=== PATIENT | female | born 2000 | race Caucasian/White ===

== ENCOUNTER 2020-08-13 08:23 | Inpatient (IN) | payer OTHER ==
[2020-08-13] MEDS ORDERED: Nalbuphine 10 MG/1 ML Vial IVPUSH PRN (12:41)
[2020-08-13] MEDS ORDERED: Sodium Chloride 0.9% 10 ML Syringe FLUSH PRN (12:41)
[2020-08-13] MEDS ORDERED: Calcium Gluconate 10% 1 GM/10 ML SDV IV PRN (12:41)
[2020-08-13] MEDS ORDERED: Lidocaine 1% 50 ML MDV INJECT ONE (12:41)
[2020-08-13] MEDS ORDERED: Ondansetron 4 MG/2 ML SDV IVPUSH PRN (12:41)
[2020-08-13] MEDS ORDERED: Oxytocin/Lactated Ringers 10 UNIT/1,000 ML BAG IV SCH ×2 (12:45)
[2020-08-13] MEDS ORDERED: Ampicillin 2 GM AdvVial IV ONE (13:18)
[2020-08-13] MEDS: Lactated Ringers 1,000 ML IV SCH ×2 (13:21→18:53)
[2020-08-13] MEDS ORDERED: Ampicillin 2 GM in Sodium Chloride 0.9% 100 ML IV ONE (13:30)
--- NOTE | 2020-08-13 14:50 | PCM.PREANE ---
Preanesthetic Assessment - Procedure Proposed Procedure: Labor epidural - Anesthesia/Transfusion/Family Hx Anesthesia History: No Prior Anesthesia Family History of Anesthesia Reaction: No Transfusion History: No Prior Transfusion(s) Intubation History: Unknown - Review of Systems General: No Symptoms Pulmonary: No Symptoms Cardiovascular: No Symptoms Gastrointestinal: No Symptoms Neurological: No Symptoms Other: Reports: Easy Bruising - Physical Assessment NPO Status Date: 08/13/20 NPO Status Time: 14:30 Vital Signs: 154/89 HR 98 98 18 99.0 Height: 1.65 m Weight: 98.384 kg ASA Class: 2 Mental Status: Alert & Oriented x3 Airway Class: Mallampati = 2 Dentition: Reports: Normal Dentition, Caries Thyro-Mental Finger Breadths: 3 Mouth Opening Finger Breadths: 3 ROM/Head Extension: Full Lungs: Clear to Auscultation, Normal Respiratory Effort Cardiovascular: Regular Rate, Regular Rhythm - Lab Values: Laboratory Last Values WBC 9.91 K/mm3 (3.98-10.04) 08/13/20 13:06 RBC 3.38 M/mm3 (3.98-5.22) L 08/13/20 13:06 Hgb 10.3 gm/dl (11.2-15.7) L 08/13/20 13:06 Hct 30.0 % (34.1-44.9) L 08/13/20 13:06 MCV 88.8 fl (79.4-94.8) 08/13/20 13:06 MCH 30.5 pg (25.6-32.2) 08/13/20 13:06 MCHC 34.3 g/dl (32.2-35.5) 08/13/20 13:06 RDW Std Deviation 44.8 fL (36.4-46.3) 08/13/20 13:06 Plt Count 199 K/mm3 (182-369) 08/13/20 13:06 MPV 9.9 fl (9.4-12.3) 08/13/20 13:06 Neut % (Auto) 74.9 % (34.0-71.1) H 08/13/20 13:06 Lymph % (Auto) 18.3 % (19.3-51.7) L 08/13/20 13:06 [place] % (Auto) 5.8 % (4.7-12.5) 08/13/20 13:06 Eos % (Auto) 0.6 (0.7-5.8) L 08/13/20 13:06 Baso % (Auto) 0.4 % (0.1-1.2) 08/13/20 13:06 Neut # (Auto) 7.43 K/mm3 (1.56-6.13) H 08/13/20 13:06 Lymph # (Auto) 1.81 K/mm3 (1.18-3.74) 08/13/20 13:06 [place] # (Auto) 0.57 K/mm3 (0.24-0.36) H 08/13/20 13:06 Eos # (Auto) 0.06 K/mm3 (0.04-0.36) 08/13/20 13:06 Baso # (Auto) 0.04 K/mm3 (0.01-0.08) 08/13/20 13:06 BUN 5 mg/dL (7-18) L 08/13/20 13:06 Creatinine 0.8 mg/dL (0.55-1.02) 08/13/20 13:06 Est Cr Clr Drug Dosing TNP 08/13/20 13:06 Estimated GFR (MDRD) > 60 mL/min (>60) 08/13/20 13:06 Uric Acid 5.5 mg/dL (2.6-6.0) 08/13/20 13:06 AST 36 U/L (15-37) 08/13/20 13:06 ALT 35 U/L (14-59) 08/13/20 13:06 Lactate Dehydrogenase 252 U/L (81-234) H 08/13/20 13:06 SARS-CoV-2 RNA (TAISHA) Negative (NEGATIVE) 08/13/20 12:40 Blood Type O POSITIVE 08/13/20 13:06 Gel Antibody Screen Negative 08/13/20 13:06 - Allergies Allergies/Adverse Reactions: Allergies Allergy/AdvReac Type Severity Reaction Status Date / Time No Known Allergies Allergy Verified 08/13/20 13:16 - Blood Blood Available: No Product(s) Available: None - Acknowledgements Anesthesia Type Planned: Epidural Pt an Appropriate Candidate for the Planned Anesthesia: Yes Alternatives and Risks of Anesthesia Discussed w Pt/Guardian: Yes Pt/Guardian Understands and Agrees with Anesthesia Plan: Yes PreAnesthesia Questionnaire HEENT History: Reports: Impaired Vision Other Respiratory History: History of sports induced asthma but has not had to use an inhaler since high school Gastrointestinal History: Reports: GERD 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 USE Tobacco Use Within Last Twelve Months: Vaping, Other (See Below) (Vaped prior to pregnacy) Second Hand Smoke Exposure: No Days Per Week of Alcohol Use: 0 Number of Drinks Per Day: 0 Total Drinks Per Week: 0 Recreational Drug Use History: No - CURRENT (IN HOUSE) MEDS Current Meds: Current Medications Calcium Gluconate (Calcium Gluconate 10% 1 Gm/10 Ml Sdv) 1 gm IV ASDIRECTED PRN PRN Reason: respiratory distress Lactated Ringer's (Ringers, Lactated) 1,000 mls @ 100 mls/hr IV ASDIRECTED MELISSA Last Admin: 08/13/20 13:21 Dose: 100 mls/hr Documented by: Ampicillin Sodium 1 gm/ Sodium (Chloride) 100 mls @ 200 mls/hr IV Q4H MELISSA Oxytocin/Lactated Ringer's (Pitocin In Lr 10 Units/1,000 Ml) 10 unit in 1,000 mls @ 12 mls/hr IV TITRATE MELISSA; Protocol Last Admin: 08/13/20 14:28 Dose: 2 munits/min, 12 mls/hr Documented by: Oxytocin/Lactated Ringer's (Pitocin In Lr 10 Units/1,000 Ml) 10 unit in 1,000 mls @ 100 mls/hr IV .CONTINUOUS MELISSA Nalbuphine HCl (Nalbuphine 10 Mg/1 Ml Vial) 10 mg IVPUSH Q2H PRN PRN Reason: Pain Ondansetron HCl (Ondansetron 4 Mg/2 Ml Sdv) 4 mg IVPUSH Q4H PRN PRN Reason: Nausea/Vomiting Sodium Chloride (Sodium Chloride 0.9% 10 Ml Syringe) 10 ml FLUSH ASDIRECTED PRN PRN Reason: Keep Vein Open Discontinued Medications Ampicillin Sodium (Ampicillin 2 Gm Advvial) Confirm Administered Dose 2 gm IV .STK-MED ONE Stop: 08/13/20 13:19 Ampicillin Sodium 2 gm/ Sodium (Chloride) 100 mls @ 200 mls/hr IV ONETIME ONE Stop: 08/13/20 13:59 Last Admin: 08/13/20 13:21 Dose: 200 mls/hr Documented by: Lidocaine HCl (Lidocaine 1% 50 Ml Mdv) 50 ml INJECT ONETIME ONE Stop: 08/13/20 12:42
[2020-08-13] MEDS: Ampicillin 1 GM in Sodium Chloride 0.9% 100 ML IV SCH ×2 (17:45→21:27)
--- NOTE | 2020-08-13 17:53 | PCM.LDHP ---
L&D History of Present Illness - General Date of Service: 08/13/20 Admit Problem/Dx: Patient Status Order with Admit Dx/Problem 08/13/20 12:47 Patient Status [ADT] Routine Admission Diagnosis/Problem Admission Diagnosis/Problem - History of Present Illness Introduction:: 20 year old at 36w. PNC with myself without significant complications. Today elevated blood pressure so decision for induction. 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: Social & Family History - Family History Family Medical History: No Pertinent Family History - Tobacco Use Second Hand Smoke Exposure: No - Alcohol Use Days Per Week of Alcohol Use: 0 Number of Drinks Per Day: 0 Total Drinks Per Week: 0 - Recreational Drug Use Recreational Drug Use: No H&P Review of Systems - Review of Systems: Review Of Systems: See Below General: Reports: No Symptoms HEENT: Reports: No Symptoms Pulmonary: Reports: No Symptoms Cardiovascular: Reports: No Symptoms Gastrointestinal: Reports: No Symptoms Genitourinary: Reports: No Symptoms Musculoskeletal: Reports: No Symptoms Skin: Reports: No Symptoms Psychiatric: Reports: No Symptoms Neurological: Reports: No Symptoms Hematologic/Lymphatic: Reports: No Symptoms Immunologic: Reports: No Symptoms L&D Exam - Exam Exam: See Below - Vital Signs Weight: 98.384 kg - OB Specific Contraction Intensity: Mild to Moderate Movement: Active Heart Tones: Present Heart Rate (FHR) Variability: Moderate (6-25 bmp) Presentation: Vertex - Dominguez Score Dominguez Score Cervix Position: Midposition Dominguez Score Consistency: Soft Dominguez Score Effacement: 31-50% Dominguez Score Dilation: 3-4 cm Dominguez Score 's Station: -2 Dominguez Score Total: 7 - Exam General: Alert, Oriented HEENT: PERRLA, Conjunctiva Clear, EACs Clear, EOMI, Hearing Intact, Mucosa Moist & [place], Nares Patent, Normal Nasal Septum, Posterior Pharynx Clear, TMs Clear Neck: Supple, Trachea Midline Lungs: Clear to Auscultation, Normal Respiratory Effort Cardiovascular: Regular Rate, Regular Rhythm GI/Abdominal Exam: Normal Bowel Sounds, Soft, Non-Tender, No Organomegaly, No Distention, No Abnormal Bruit, No Mass, Pelvis Stable Rectal Exam: Normal Exam Genitourinary: Normal external exam, Normal bimanual exam, Normal speculum exam Back Exam: Normal Inspection, Full Range of Motion Extremities: Normal Inspection, Normal Range of Motion, Non-Tender, No Pedal Edema, Normal Capillary Refill Skin: Warm, Dry, Intact Neurological: Cranial Nerves Intact, Reflexes Equal Bilateral Psychiatric: Alert, Normal Affect, Normal Mood - Patient Data Lab Results Last 24 hrs: Laboratory Results - last 24 hr 08/13/20 08/13/20 08/13/20 Range/Units 12:40 13:06 13:06 WBC 9.91 (3.98-10.04) K/mm3 RBC 3.38 L (3.98-5.22) M/mm3 Hgb 10.3 L (11.2-15.7) gm/dl Hct 30.0 L (34.1-44.9) % MCV 88.8 (79.4-94.8) fl MCH 30.5 (25.6-32.2) pg MCHC 34.3 (32.2-35.5) g/dl RDW Std Deviation 44.8 (36.4-46.3) fL Plt Count 199 (182-369) K/mm3 MPV 9.9 (9.4-12.3) fl Neut % (Auto) 74.9 H (34.0-71.1) % Lymph % (Auto) 18.3 L (19.3-51.7) % [place] % (Auto) 5.8 (4.7-12.5) % Eos % (Auto) 0.6 L (0.7-5.8) Baso % (Auto) 0.4 (0.1-1.2) % Neut # (Auto) 7.43 H (1.56-6.13) K/mm3 Lymph # (Auto) 1.81 (1.18-3.74) K/mm3 [place] # (Auto) 0.57 H (0.24-0.36) K/mm3 Eos # (Auto) 0.06 (0.04-0.36) K/mm3 Baso # (Auto) 0.04 (0.01-0.08) K/mm3 BUN (7-18) mg/dL Creatinine (0.55-1.02) mg/dL Est Cr Clr Drug Dosing Estimated GFR (MDRD) (>60) mL/min Uric Acid (2.6-6.0) mg/dL AST (15-37) U/L ALT (14-59) U/L Lactate Dehydrogenase (81-234) U/L SARS-CoV-2 RNA (TAISHA) Negative (NEGATIVE) Blood Type O POSITIVE Gel Antibody Screen Negative 08/13/20 Range/Units 13:06 WBC (3.98-10.04) K/mm3 RBC (3.98-5.22) M/mm3 Hgb (11.2-15.7) gm/dl Hct (34.1-44.9) % MCV (79.4-94.8) fl MCH (25.6-32.2) pg MCHC (32.2-35.5) g/dl RDW Std Deviation (36.4-46.3) fL Plt Count (182-369) K/mm3 MPV (9.4-12.3) fl Neut % (Auto) (34.0-71.1) % Lymph % (Auto) (19.3-51.7) % [place] % (Auto) (4.7-12.5) % Eos % (Auto) (0.7-5.8) Baso % (Auto) (0.1-1.2) % Neut # (Auto) (1.56-6.13) K/mm3 Lymph # (Auto) (1.18-3.74) K/mm3 [place] # (Auto) (0.24-0.36) K/mm3 Eos # (Auto) (0.04-0.36) K/mm3 Baso # (Auto) (0.01-0.08) K/mm3 BUN 5 L (7-18) mg/dL Creatinine 0.8 (0.55-1.02) mg/dL Est Cr Clr Drug Dosing TNP Estimated GFR (MDRD) > 60 (>60) mL/min Uric Acid 5.5 (2.6-6.0) mg/dL AST 36 (15-37) U/L ALT 35 (14-59) U/L Lactate Dehydrogenase 252 H (81-234) U/L SARS-CoV-2 RNA (TAISHA) (NEGATIVE) Blood Type Gel Antibody Screen Result Diagrams: 08/13/20 13:06 08/13/20 13:06 Problem List Initiated/Reviewed/Updated: Yes Orders Last 24hrs: Active Orders 24 hr Category Date Time Status Patient Status [ADT] Routine ADT 08/13/20 12:47 Active Activity as Tolerated [RC] PFP Care 08/13/20 12:41 Active Bedrest [RC] ASDIRECTED Care 08/13/20 12:45 Active Communication Order [RC] ASDIRECTED Care 08/13/20 12:41 Active Communication Order [RC] ASDIRECTED Care 08/13/20 12:45 Active Equipment to Bedside [RC] PRN Care 08/13/20 12:51 Active Heart Tones [RC] ASDIRECTED Care 08/13/20 12:47 Active Monitoring [RC] CONTINUOUS Care 08/13/20 12:45 Active Non Stress Test [RC] PER UNIT ROUTINE Care 08/13/20 12:41 Active Notify Provider Status Change [RC] ASDIRECTED Care 08/13/20 12:52 Active Notify Provider Vital Signs [RC] ASDIRECTED Care 08/13/20 12:52 Active Notify Provider [RC] ASDIRECTED Care 08/13/20 12:45 Active Notify Provider [RC] PFP Care 08/13/20 12:41 Active Notify Provider [RC] PRN Care 08/13/20 12:41 Active Oxygen Therapy [RC] PRN Care 08/13/20 12:45 Active Peripheral IV Care [RC] . DIRECTED Care 08/13/20 12:47 Active Vital Signs [RC] PER UNIT ROUTINE Care 08/13/20 12:41 Active Regular Diet [DIET] Diet 08/13/20 Lunch Active PATIENT RETYPE [BBK] Routine Lab 08/13/20 14:44 Ordered PROTEIN/CREATININE RATIO,URINE [URCHEM] Stat Lab 08/13/20 12:51 Ordered RAPID PLASMA REAGIN,RPR [CHEM] Routine Lab 08/13/20 13:06 Received Ampicillin 1 gm Med 08/13/20 17:30 Active Sodium Chloride 0.9% [Normal Saline] 100 ml IV Q4H Calcium Gluconate Med 08/13/20 12:41 Active 1 gm IV ASDIRECTED PRN Lactated Ringers [Ringers, Lactated] 1,000 ml Med 08/13/20 12:45 Active IV ASDIRECTED Nalbuphine [Nubain] Med 08/13/20 12:41 Active 10 mg IVPUSH Q2H PRN Ondansetron [Zofran] Med 08/13/20 12:41 Active 4 mg IVPUSH Q4H PRN Oxytocin/Lactated Ringers [Pitocin in LR 10 Units/1,000 Med 08/13/20 12:45 Active ML] 10 unit in 1,000 ml IV .CONTINUOUS Oxytocin/Lactated Ringers [Pitocin in LR 10 Units/1,000 Med 08/13/20 12:45 Active ML] 10 unit in 1,000 ml IV TITRATE Sodium Chloride 0.9% [Saline Flush] Med 08/13/20 12:41 Active 10 ml FLUSH ASDIRECTED PRN Blood Pressure [OM.PC] ASDIRECTED Ot 08/13/20 12:45 Ordered Deep Tendon Reflexes [WOMSER] ASDIRECTED Ot 08/13/20 12:45 Ordered Electronic Heart Tones Ext w TOCO [WOMSER] Ot 08/13/20 12:41 Ordered Routine Electronic Heart Tones Internal [WOMSER] Per Unit [facility] 08/13/20 12:41 Ordered Routine PIH Panel [OM.PC] Stat [facility] 08/13/20 12:41 Ordered Peripheral IV Insertion Adult [OM.PC] Routine Ot 08/13/20 12:41 Ordered Resuscitation Status Routine Resus Stat 08/13/20 12:41 Ordered Medication Orders Calcium Gluconate (Calcium Gluconate 10% 1 Gm/10 Ml Sdv) 1 gm IV ASDIRECTED PRN PRN Reason: respiratory distress Lactated Ringer's (Ringers, Lactated) 1,000 mls @ 100 mls/hr IV ASDIRECTED MELISSA Last Admin: 08/13/20 13:21 Dose: 100 mls/hr Documented by: BINDAMA Ampicillin Sodium 1 gm/ Sodium (Chloride) 100 mls @ 200 mls/hr IV Q4H [facility] Oxytocin/Lactated Ringer's (Pitocin In Lr 10 Units/1,000 Ml) 10 unit in 1,000 mls @ 12 mls/hr IV TITRATE MELISSA; Protocol Last Admin: 08/13/20 14:28 Dose: 2 munits/min, 12 mls/hr Documented by: MALLORIE Oxytocin/Lactated Ringer's (Pitocin In Lr 10 Units/1,000 Ml) 10 unit in 1,000 mls @ 100 mls/hr IV .CONTINUOUS MELISSA Nalbuphine HCl (Nalbuphine 10 Mg/1 Ml Vial) 10 mg IVPUSH Q2H PRN PRN Reason: Pain Ondansetron HCl (Ondansetron 4 Mg/2 Ml Sdv) 4 mg IVPUSH Q4H PRN PRN Reason: Nausea/Vomiting Sodium Chloride (Sodium Chloride 0.9% 10 Ml Syringe) 10 ml FLUSH ASDIRECTED PRN PRN Reason: Keep Vein Open Assessment/Plan Comment:: induction for gestational hypertension - severe. Labs normal Ampicillin for GBS Anticipate .
[2020-08-13] MEDS ORDERED: diphenhydrAMINE 50 MG/ML SDV IVPUSH PRN (18:38)
[2020-08-13] MEDS ORDERED: ePHEDrine 50 MG/ML SDV IVPUSH PRN (18:38)
[2020-08-13] MEDS ORDERED: fentaNYL 100 MCG/2 ML SDV ONE (18:42)
[2020-08-13] MEDS: fentaNYL 100 MCG/2 ML SDV EPIDUR PRN (18:53)
[2020-08-13] MEDS: Bupivacaine/fentaNYL/NS 100 ML Bag EPIDUR PRN (18:54)
--- NOTE | 2020-08-14 00:27 | PCM.PNLD ---
Labor Progress Note - VS & Meds Vital Signs: Last Vital Signs Temp 37.2 C 08/13/20 13:15 Pulse Resp 16 08/13/20 13:15 BP 153/94 H 08/13/20 13:15 Pulse Ox 98 08/13/20 13:15 Active Medications: Current Medications Calcium Gluconate (Calcium Gluconate 10% 1 Gm/10 Ml Sdv) 1 gm IV ASDIRECTED PRN PRN Reason: respiratory distress Diphenhydramine HCl (Diphenhydramine 50 Mg/Ml Sdv) 25 mg IVPUSH Q6H PRN PRN Reason: pruritis Ephedrine Sulfate (Ephedrine 50 Mg/Ml Sdv) 5 mg IVPUSH ASDIRECTED PRN PRN Reason: Hypotension Fentanyl (Fentanyl 100 Mcg/2 Ml Sdv) 100 mcg EPIDUR Q3H PRN PRN Reason: Pain Last Admin: 08/13/20 18:53 Dose: 100 mcg Documented by: Fentanyl/Bupivacaine HCl (Bupivacaine/Fentanyl/Ns 100 Ml Bag) 100 ml EPIDUR ASDIRECTED PRN PRN Reason: Pain Last Admin: 08/13/20 18:54 Dose: 100 ml Documented by: Lactated Ringer's (Ringers, Lactated) 1,000 mls @ 100 mls/hr IV ASDIRECTED MELISSA Last Admin: 08/13/20 18:53 Dose: 100 mls/hr Documented by: Ampicillin Sodium 1 gm/ Sodium (Chloride) 100 mls @ 200 mls/hr IV Q4H MELISSA Last Admin: 08/13/20 21:27 Dose: 200 mls/hr Documented by: Oxytocin/Lactated Ringer's (Pitocin In Lr 10 Units/1,000 Ml) 10 unit in 1,000 mls @ 12 mls/hr IV TITRATE MELISSA; Protocol Last Admin: 08/13/20 14:28 Dose: 2 munits/min, 12 mls/hr Documented by: Oxytocin/Lactated Ringer's (Pitocin In Lr 10 Units/1,000 Ml) 10 unit in 1,000 mls @ 100 mls/hr IV .CONTINUOUS MELISSA Nalbuphine HCl (Nalbuphine 10 Mg/1 Ml Vial) 10 mg IVPUSH Q2H PRN PRN Reason: Pain Last Admin: 08/13/20 18:09 Dose: 10 mg Documented by: Ondansetron HCl (Ondansetron 4 Mg/2 Ml Sdv) 4 mg IVPUSH Q4H PRN PRN Reason: Nausea/Vomiting Sodium Chloride (Sodium Chloride 0.9% 10 Ml Syringe) 10 ml FLUSH ASDIRECTED PRN PRN Reason: Keep Vein Open Discontinued Medications Ampicillin Sodium (Ampicillin 2 Gm Advvial) Confirm Administered Dose 2 gm IV .STK-MED ONE Stop: 08/13/20 13:19 Last Admin: 08/13/20 18:15 Dose: Not Given Documented by: Fentanyl (Fentanyl 100 Mcg/2 Ml Sdv) Confirm Administered Dose 100 mcg .ROUTE .STK-MED ONE Stop: 08/13/20 18:43 Last Admin: 08/13/20 21:49 Dose: Not Given Documented by: Ampicillin Sodium 2 gm/ Sodium (Chloride) 100 mls @ 200 mls/hr IV ONETIME ONE Stop: 08/13/20 13:59 Last Admin: 08/13/20 13:21 Dose: 200 mls/hr Documented by: Lidocaine HCl (Lidocaine 1% 50 Ml Mdv) 50 ml INJECT ONETIME ONE Stop: 08/13/20 12:42 - Uterine Contractions Contraction Intensity: Mild to Moderate - Monitoring Heart Rate (FHR) Variability: Moderate (6-25 bmp) Strip Review: Category I - Vaginal Exam Dilation (cm): 6.5 Effacement (Percent): 80 Station: -1 - Labor Progress (Free Text) Labor Progress: Progressing well. Somewhat more uncomfortable with epidural. Continue pitocin 2 mu/min - increase once as needed. Attempted to place IUPC but coiled and difficult.
[2020-08-14] MEDS: fentaNYL 100 MCG/2 ML SDV EPIDUR PRN ×2 (01:00→03:53)
[2020-08-14] MEDS: Ampicillin 1 GM in Sodium Chloride 0.9% 100 ML IV SCH ×3 (01:33→20:50)
[2020-08-14] MEDS ORDERED: Labetalol 100 MG/20 ML MDV IVPUSH ONE (01:53)
[2020-08-14] MEDS: Bupivacaine/fentaNYL/NS 100 ML Bag EPIDUR PRN ×2 (02:35→07:31)
[2020-08-14] MEDS: Potassium Chloride 10 MEQ, Lidocaine 1% 1 ML in Premix Bag 1 BAG IV SCH ×2 (04:53→07:08)
[2020-08-14] MEDS: Lactated Ringers 1,000 ML IV SCH (04:59)
[2020-08-14] MEDS: Potassium Chloride 10 MEQ in Premix Bag 1 BAG IV SCH ×2 (05:13→10:06)
--- NOTE | 2020-08-14 05:35 | PCM.SN.2 ---
- Free Text/Narrative Note: Called over night with severe pain from hand cramps. Checked electrolytes and K was 2.5. Replacement kRuns started. Will transition to oral . 9.5 cm now.
--- NOTE | 2020-08-14 09:15 | PCM.DEL ---
L & D Note - General Info Date of Service: 08/14/20 Mother's Due Date: 09/10/20 - Delivery Note Labor: Induced by ARM, Induced by Oxytocin Delivery Outcome: Livebirth Infant Delivery Method: Spontaneous Vaginal Delivery-Single Presentation: Left Occiput Anterior (FLAVIO) Nuchal Cord: None Anesthesia Type: Epidural Episiotomy Type: None Laceration: None Placenta: Intact, Spontaneous Cord: 3 Vessels Estimated Blood Loss: 250 Resuscitation Needed: No [place]: Bulb Syringe, Stimulated, Warmed, [place] Used Provider: aDnie Vargas Score 1 min: 8 Score 5 min: 9 Second Stage Interventions: Reports: Pushing Effectively, Pushing, Stirrups/Leg Supports Delivery Comments (Free Text/Narrative):: Stage I: Gillian Matamoros was admitted for induction of labor in the setting of severe gestational hypertension at 36 weeks 0 days. On admission her cervix was dilated to 3 to 4 cm. She was GBS unknown and was started on ampicillin for GBS prophylaxis due to prematurity. She received 5 doses of antibiotics prior to delivery. She had artificial rupture of membranes with return of clear fluid. She was started on Pitocin for induction of labor. She was given an epidural for anesthesia. Patient had numbness and tingling in her arms and had labs drawn and was noted to have hypokalemia with a potassium of 2.2. She was started on IV potassium replacement. Patient had severe range blood pressure and was treated with labetalol 10 mg IV for 1 dose. After this she had ongoing mild range blood pressures. She progressed to complete and pushing. Stage II: On 08/14/2020 she had a normal vaginal delivery of a live male infant at 08:23. Apgars of 8 & 9. Weight of 3210 g (7 lbs 1.2 oz). Length of 19.0 inches. There was no nuchal cord. Infant was delivered in FLAVIO position. The cord was doubly clamped and cut by father the . Infant was placed on mother's abdomen. Stage III: She had a spontaneous delivery of an intact placenta in Jassi presentation. Three vessel cord. She was given pitocin and fundal massage. She had no lacerations present. There was noted to be small nonexpanding hematoma in the posterior fourchette at the vaginal introitus that was nontender. Mom and baby were stable to recovery. EBL of 250 mL. Kuldip Enrique MD 9:10 AM 08/14/2020 Induction Criteria - Dominguez Score Dominguez Score Dilation: 3-4 cm Dominguez Score Effacement: 60-70% Dominguez Score Infant's Station: -2 Dominguez Score Consistency: Soft Dominguez Score Cervix Position: Posterior Dominguez Score Total: 7 Dominguez Score Presenting Part: Reports: Cephalic - Induction Gestational Age >/= 39 wks: No Medical Indication: Gestational hypertension Estimated Pelvis: Reports: Adequate Reassuring Monitoring Strip: Yes Absence of Tachy Systole: Yes - Augmentation Estimated Pelvis: Reports: Adequate Weight Estimated:: Reports: AGA Reassuring Monitoring Strip: Yes Absence of Tachy Systole: Yes - General Info Date of Service: 08/14/20 - Patient Data Vitals - Most Recent: Last Vital Signs Temp 37.2 C 08/13/20 13:15 Pulse Resp 16 08/13/20 13:15 BP 153/94 H 08/13/20 13:15 Pulse Ox 98 08/13/20 13:15 Weight - Most Recent: 98.384 kg I&O - Last 24 Hours: Intake & Output 08/13/20 08/14/20 08/14/20 22:59 06:59 14:59 Intake Total 1400 Output Total 1675 Balance -275 Lab Results Last 24 Hours: Laboratory Results - last 24 hr 08/13/20 08/13/20 08/13/20 Range/Units 12:40 13:06 13:06 WBC 9.91 (3.98-10.04) K/mm3 RBC 3.38 L (3.98-5.22) M/mm3 Hgb 10.3 L (11.2-15.7) gm/dl Hct 30.0 L (34.1-44.9) % MCV 88.8 (79.4-94.8) fl MCH 30.5 (25.6-32.2) pg MCHC 34.3 (32.2-35.5) g/dl RDW Std Deviation 44.8 (36.4-46.3) fL Plt Count 199 (182-369) K/mm3 MPV 9.9 (9.4-12.3) fl Neut % (Auto) 74.9 H (34.0-71.1) % Lymph % (Auto) 18.3 L (19.3-51.7) % [place] % (Auto) 5.8 (4.7-12.5) % Eos % (Auto) 0.6 L (0.7-5.8) Baso % (Auto) 0.4 (0.1-1.2) % Neut # (Auto) 7.43 H (1.56-6.13) K/mm3 Lymph # (Auto) 1.81 (1.18-3.74) K/mm3 [place] # (Auto) 0.57 H (0.24-0.36) K/mm3 Eos # (Auto) 0.06 (0.04-0.36) K/mm3 Baso # (Auto) 0.04 (0.01-0.08) K/mm3 Sodium (136-145) mEq/L Potassium (3.5-5.1) mEq/L Chloride (98-107) mEq/L Carbon Dioxide (21-32) mEq/L Anion Gap (5-15) BUN (7-18) mg/dL Creatinine (0.55-1.02) mg/dL Est Cr Clr Drug Dosing Estimated GFR (MDRD) (>60) mL/min BUN/Creatinine Ratio (14-18) Glucose (70-99) mg/dL Uric Acid (2.6-6.0) mg/dL Calcium (8.5-10.1) mg/dL Magnesium (1.8-2.4) mg/dL Total Bilirubin (0.2-1.0) mg/dL AST (15-37) U/L ALT (14-59) U/L Alkaline Phosphatase (46-116) U/L Lactate Dehydrogenase (81-234) U/L Total Protein (6.4-8.2) g/dl Albumin (3.4-5.0) g/dl Globulin gm/dL Albumin/Globulin Ratio (1-2) RPR Non-reactive (NONREACTIVE) SARS-CoV-2 RNA (TAISHA) Negative (NEGATIVE) Blood Type Gel Antibody Screen 08/13/20 08/13/20 08/14/20 Range/Units 13:06 13:06 03:50 WBC (3.98-10.04) K/mm3 RBC (3.98-5.22) M/mm3 Hgb (11.2-15.7) gm/dl Hct (34.1-44.9) % MCV (79.4-94.8) fl MCH (25.6-32.2) pg MCHC (32.2-35.5) g/dl RDW Std Deviation (36.4-46.3) fL Plt Count (182-369) K/mm3 MPV (9.4-12.3) fl Neut % (Auto) (34.0-71.1) % Lymph % (Auto) (19.3-51.7) % [place] % (Auto) (4.7-12.5) % Eos % (Auto) (0.7-5.8) Baso % (Auto) (0.1-1.2) % Neut # (Auto) (1.56-6.13) K/mm3 Lymph # (Auto) (1.18-3.74) K/mm3 [place] # (Auto) (0.24-0.36) K/mm3 Eos # (Auto) (0.04-0.36) K/mm3 Baso # (Auto) (0.01-0.08) K/mm3 Sodium 143 (136-145) mEq/L Potassium 2.2 L* (3.5-5.1) mEq/L Chloride 103 (98-107) mEq/L Carbon Dioxide 18 L (21-32) mEq/L Anion Gap 24.2 H (5-15) BUN 5 L 4 L (7-18) mg/dL Creatinine 0.8 0.7 (0.55-1.02) mg/dL Est Cr Clr Drug Dosing TNP 113.43 Estimated GFR (MDRD) > 60 > 60 (>60) mL/min BUN/Creatinine Ratio 5.7 L (14-18) Glucose 105 H (70-99) mg/dL Uric Acid 5.5 (2.6-6.0) mg/dL Calcium 8.9 (8.5-10.1) mg/dL Magnesium 1.0 L (1.8-2.4) mg/dL Total Bilirubin 0.8 (0.2-1.0) mg/dL AST 36 37 (15-37) U/L ALT 35 32 (14-59) U/L Alkaline Phosphatase 135 H (46-116) U/L Lactate Dehydrogenase 252 H (81-234) U/L Total Protein 6.6 (6.4-8.2) g/dl Albumin 2.7 L (3.4-5.0) g/dl Globulin 3.9 gm/dL Albumin/Globulin Ratio 0.7 L (1-2) RPR (NONREACTIVE) SARS-CoV-2 RNA (TAISHA) (NEGATIVE) Blood Type O POSITIVE Gel Antibody Screen Negative Med Orders - Current: Current Medications Calcium Gluconate (Calcium Gluconate 10% 1 Gm/10 Ml Sdv) 1 gm IV ASDIRECTED PRN PRN Reason: respiratory distress Diphenhydramine HCl (Diphenhydramine 50 Mg/Ml Sdv) 25 mg IVPUSH Q6H PRN PRN Reason: pruritis Ephedrine Sulfate (Ephedrine 50 Mg/Ml Sdv) 5 mg IVPUSH ASDIRECTED PRN PRN Reason: Hypotension Fentanyl (Fentanyl 100 Mcg/2 Ml Sdv) 100 mcg EPIDUR Q3H PRN PRN Reason: Pain Last Admin: 08/14/20 03:53 Dose: 100 mcg Documented by: Fentanyl/Bupivacaine HCl (Bupivacaine/Fentanyl/Ns 100 Ml Bag) 100 ml EPIDUR ASDIRECTED PRN PRN Reason: Pain Last Admin: 08/14/20 07:31 Dose: 100 ml Documented by: Lactated Ringer's (Ringers, Lactated) 1,000 mls @ 100 mls/hr IV ASDIRECTED MELISSA Last Admin: 08/14/20 04:59 Dose: 100 mls/hr Documented by: Ampicillin Sodium 1 gm/ Sodium (Chloride) 100 mls @ 200 mls/hr IV Q4H MELISSA Last Admin: 08/14/20 07:08 Dose: 200 mls/hr Documented by: Oxytocin/Lactated Ringer's (Pitocin In Lr 10 Units/1,000 Ml) 10 unit in 1,000 mls @ 12 mls/hr IV TITRATE MELISSA; Protocol Last Titration: 08/14/20 01:00 Dose: 0 munits/min, 0 mls/hr Documented by: Oxytocin/Lactated Ringer's (Pitocin In Lr 10 Units/1,000 Ml) 10 unit in 1,000 mls @ 100 mls/hr IV .CONTINUOUS MELISSA Nalbuphine HCl (Nalbuphine 10 Mg/1 Ml Vial) 10 mg IVPUSH Q2H PRN PRN Reason: Pain Last Admin: 08/13/20 18:09 Dose: 10 mg Documented by: Ondansetron HCl (Ondansetron 4 Mg/2 Ml Sdv) 4 mg IVPUSH Q4H PRN PRN Reason: Nausea/Vomiting Last Admin: 08/14/20 00:32 Dose: 4 mg Documented by: Sodium Chloride (Sodium Chloride 0.9% 10 Ml Syringe) 10 ml FLUSH ASDIRECTED PRN PRN Reason: Keep Vein Open Discontinued Medications Ampicillin Sodium (Ampicillin 2 Gm Advvial) Confirm Administered Dose 2 gm IV .STK-MED ONE Stop: 08/13/20 13:19 Last Admin: 08/13/20 18:15 Dose: Not Given Documented by: Fentanyl (Fentanyl 100 Mcg/2 Ml Sdv) Confirm Administered Dose 100 mcg .ROUTE .STK-MED ONE Stop: 08/13/20 18:43 Last Admin: 08/13/20 21:49 Dose: Not Given Documented by: Ampicillin Sodium 2 gm/ Sodium (Chloride) 100 mls @ 200 mls/hr IV ONETIME ONE Stop: 08/13/20 13:59 Last Admin: 08/13/20 13:21 Dose: 200 mls/hr Documented by: Potassium Chloride 10 meq/ (Lidocaine HCl 1 ml/ Premix) 101 mls @ 101 mls/hr IV Q1H [facility] Stop: 08/14/20 06:44 Last Admin: 08/14/20 07:08 Dose: Not Given Documented by: Potassium Chloride 10 meq/ (Premix) 100 mls @ 100 mls/hr IV Q1H [facility] Stop: 08/14/20 06:59 Last Admin: 08/14/20 05:13 Dose: 100 mls/hr Documented by: Labetalol HCl (Labetalol 100 Mg/20 Ml Mdv) 10 mg IVPUSH ONETIME ONE; Protocol Stop: 08/14/20 01:54 Last Admin: 08/14/20 02:10 Dose: 10 mg Documented by: Lidocaine HCl (Lidocaine 1% 50 Ml Mdv) 50 ml INJECT ONETIME ONE Stop: 08/13/20 12:42 - Exam Urinary Catheter Total Time: 0Days 12Hours - Problem List & Annotations (1) 36 weeks gestation of SNOMED Code(s): 00072837 Code(s): Z3A.36 - 36 WEEKS GESTATION OF Status: Acute Current Visit: Yes (2) Gestational hypertension SNOMED Code(s): 13316893 Code(s): O13.9 - GESTATIONAL HTN W/O SIGNIFICANT PROTEINURIA, UNSP TRIMESTER Status: Acute Current Visit: Yes (3) Vaginal delivery SNOMED Code(s): 007024225 Code(s): O80 - ENCOUNTER FOR FULL-TERM UNCOMPLICATED DELIVERY Status: Acute Current Visit: Yes - Problem List Review Problem List Initiated/Reviewed/Updated: Yes - My Orders Last 24 Hours: My Active Orders 08/14/20 08:42 Patient Status Manage Transfer [TRANSFER] Routine - Plan Plan:: Gillian Matamoros is a 20-year-old -1-0-1 female status post , PPD #0, complicated by gestational hypertension and obesity in and GBS unknown status and was on ampicillin for prophylaxis and received 5 doses prior to delivery Admit to inpatient following spontaneous vaginal delivery after induction of labor for gestational hypertension Continue Pitocin per unit protocol following delivery of placenta and lactated Ringer's until tolerating regular diet Regular diet Vitals per unit routine with close monitoring for severe range blood pressures that may indicate preeclampsia with severe features that may indicate need for magnesium infusion for seizure prophylaxis Ibuprofen and Tylenol for pain control Assist with breast-feeding as needed Continue to monitor lochia Continue with potassium supplementation due to severe hypokalemia with a value of 2.2. We will continue on potassium chloride 40 mEq 3 times daily and recheck her potassium in the morning of PPD #1 Anticipate discharge home on day #1 or #2 depending on status Kuldip Enrique MD 9:10 AM 08/14/2020
[2020-08-14] MEDS ORDERED: Acetaminophen 325 MG Tab PO PRN (10:04)
[2020-08-14] MEDS ORDERED: Ibuprofen 600 MG Tab PO PRN (10:04)
[2020-08-14] MEDS ORDERED: Witch Hazel Medicated Pads 40/Jar TOP PRN (10:04)
[2020-08-14] MEDS ORDERED: Oxytocin/Lactated Ringers 10 UNIT/1,000 ML BAG IV SCH (10:04)
[2020-08-14] MEDS ORDERED: Benzocaine/Menthol 20%-0.5% Spray 56 GM Canister TOP PRN (10:04)
[2020-08-14] MEDS ORDERED: Hydrocortisone Acetate 25 MG Supp RECTAL PRN (10:04)
[2020-08-14] MEDS ORDERED: Magnesium Hydroxide 400 MG/5 ML Susp 30 ML Cup PO PRN (10:04)
[2020-08-14] MEDS: Potassium Chloride 20 MEQ Tab.ER PO SCH ×3 (10:33→21:04)
[2020-08-14] MEDS: Docusate Sodium 100 MG Cap PO PRN (10:34)
[2020-08-14] MEDS: Prenatal Multivitamin with Calcium/Folic Acid/Iron Tab PO SCH (10:34)
[2020-08-14] MEDS ORDERED: Bupivacaine 0.25% 10 ML SDV ONE (12:00)
--- NOTE | 2020-08-14 14:07 | PCM48HPAN ---
Post Anesthesia Note - EVALUATION WITHIN 48HRS OF ANESTHETIC Vital Signs in Normal Range: Yes Patient Participated in Evaluation: Yes Respiratory Function Stable: Yes Airway Patent: Yes Cardiovascular Function Stable: Yes Hydration Status Stable: Yes Pain Control Satisfactory: Yes Nausea and Vomiting Control Satisfactory: Yes Mental Status Recovered: Yes Vital Signs: Last Vital Signs Temp 37.2 C 08/13/20 13:15 Pulse Resp 16 08/13/20 13:15 BP 153/94 H 08/13/20 13:15 Pulse Ox 98 08/13/20 13:15
--- NOTE | 2020-08-15 06:51 | PCM.PNPP ---
- General Info Date of Service: 08/15/20 Functional Status: Reports: Pain Controlled, Tolerating Diet, Ambulating, Urinating - Review of Systems General: Reports: No Symptoms Pulmonary: Reports: No Symptoms Cardiovascular: Reports: No Symptoms Gastrointestinal: Reports: No Symptoms Genitourinary: Reports: No Symptoms Musculoskeletal: Reports: No Symptoms Neurological: Reports: No Symptoms - Patient Data Vital Signs - Most Recent: Last Vital Signs Temp 36.8 C 08/15/20 03:54 Pulse 109 H 08/15/20 03:54 Resp 15 08/15/20 03:54 BP 139/79 08/15/20 03:54 Pulse Ox 99 08/15/20 03:54 Weight - Most Recent: 98.384 kg I&O - Last 24 Hours: Intake & Output 08/14/20 08/14/20 08/15/20 14:59 22:59 06:59 Intake Total 1400 Output Total 1782 Balance -382 Lab Results - Last 24 Hours: Laboratory Results - last 24 hr 08/14/20 08/15/20 08/15/20 Range/Units 14:10 05:05 05:05 WBC 17.25 H (3.98-10.04) K/mm3 RBC 2.85 L (3.98-5.22) M/mm3 Hgb 8.8 L D (11.2-15.7) gm/dl Hct 26.1 L (34.1-44.9) % MCV 91.6 (79.4-94.8) fl MCH 30.9 (25.6-32.2) pg MCHC 33.7 (32.2-35.5) g/dl RDW Std Deviation 47.9 H (36.4-46.3) fL Plt Count 189 (182-369) K/mm3 MPV 10.3 (9.4-12.3) fl Neut % (Auto) 76.7 H (34.0-71.1) % Lymph % (Auto) 15.6 L (19.3-51.7) % [place] % (Auto) 5.7 (4.7-12.5) % Eos % (Auto) 1.2 (0.7-5.8) Baso % (Auto) 0.3 (0.1-1.2) % Neut # (Auto) 13.22 H (1.56-6.13) K/mm3 Lymph # (Auto) 2.69 (1.18-3.74) K/mm3 [place] # (Auto) 0.99 H (0.24-0.36) K/mm3 Eos # (Auto) 0.20 (0.04-0.36) K/mm3 Baso # (Auto) 0.06 (0.01-0.08) K/mm3 Sodium 146 H (136-145) mEq/L Potassium 2.6 L (3.5-5.1) mEq/L Chloride 110 H (98-107) mEq/L Carbon Dioxide 27 (21-32) mEq/L Anion Gap 11.6 (5-15) BUN 3 L (7-18) mg/dL Creatinine 0.7 (0.55-1.02) mg/dL Est Cr Clr Drug Dosing 113.43 mL/min Estimated GFR (MDRD) > 60 (>60) mL/min BUN/Creatinine Ratio 4.3 L (14-18) Glucose 81 (70-99) mg/dL Calcium 8.5 (8.5-10.1) mg/dL Total Bilirubin 0.2 (0.2-1.0) mg/dL AST 40 H (15-37) U/L ALT 27 (14-59) U/L Alkaline Phosphatase 99 (46-116) U/L Total Protein 5.1 L (6.4-8.2) g/dl Albumin 2.0 L (3.4-5.0) g/dl Globulin 3.1 gm/dL Albumin/Globulin Ratio 0.7 L (1-2) Ur Random Creatinine 23.6 L (30.0-125.0) mg/dL U Random Total Protein 10.0 (0.0-11.8) mg/dL Protein/Creatinin Ratio 423.7 H (0-149) mg/g Med Orders - Current: Current Medications Acetaminophen (Acetaminophen 325 Mg Tab) 650 mg PO Q6H PRN PRN Reason: mild pain or fever Benzocaine/Menthol (Benzocaine/Menthol 20%-0.5% [place] 56 Gm Canister) 0 gm TOP ASDIRECTED PRN PRN Reason: Perineal Comfort Measure Last Admin: 08/14/20 10:37 Dose: 1 can Documented by: Docusate Sodium (Docusate Sodium 100 Mg Cap) 100 mg PO BID PRN PRN Reason: Constipation Last Admin: 08/14/20 10:34 Dose: 100 mg Documented by: Hydrocortisone Acetate (Hydrocortisone Acetate 25 Mg Supp) 25 mg RECTAL BID PRN PRN Reason: Hemorrhoid pain Oxytocin/Lactated Ringer's (Pitocin In Lr 10 Units/1,000 Ml) 10 unit in 1,000 mls @ 100 mls/hr IV TITRATE MELISSA; Protocol Ibuprofen (Ibuprofen 600 Mg Tab) 600 mg PO Q6H PRN PRN Reason: Mild pain or fever Magnesium Hydroxide (Magnesium Hydroxide 400 Mg/5 Ml Susp 30 Ml Cup) 30 ml PO BEDTIME PRN PRN Reason: Constipation Potassium Chloride (Potassium Chloride 20 Meq Tab.Er) 40 meq PO TID MELISSA Last Admin: 08/14/20 21:04 Dose: 40 meq Documented by: Prenat Multivit/[place]/Iron/Folic Ac ( Multivitamin With Calcium/Folic Acid/Iron Tab) 1 each PO DAILY MELISSA Last Admin: 08/14/20 10:34 Dose: 1 each Documented by: Soumya Brown (Soumya Brown Medicated Pads 40/Jar) 1 pad TOP ASDIRECTED PRN PRN Reason: Perineal Comfort Measure Last Admin: 08/14/20 10:37 Dose: 1 tub Documented by: Discontinued Medications Ampicillin Sodium (Ampicillin 2 Gm Advvial) Confirm Administered Dose 2 gm IV .STK-MED ONE Stop: 08/13/20 13:19 Last Admin: 08/13/20 18:15 Dose: Not Given Documented by: Bupivacaine HCl (Bupivacaine 0.25% 10 Ml Sdv) 30 ml .ROUTE .STK-MED ONE Stop: 08/14/20 12:01 Calcium Gluconate (Calcium Gluconate 10% 1 Gm/10 Ml Sdv) 1 gm IV ASDIRECTED PRN PRN Reason: respiratory distress Diphenhydramine HCl (Diphenhydramine 50 Mg/Ml Sdv) 25 mg IVPUSH Q6H PRN PRN Reason: pruritis Ephedrine Sulfate (Ephedrine 50 Mg/Ml Sdv) 5 mg IVPUSH ASDIRECTED PRN PRN Reason: Hypotension Fentanyl (Fentanyl 100 Mcg/2 Ml Sdv) 100 mcg EPIDUR Q3H PRN PRN Reason: Pain Last Admin: 08/14/20 03:53 Dose: 100 mcg Documented by: Fentanyl (Fentanyl 100 Mcg/2 Ml Sdv) Confirm Administered Dose 100 mcg .ROUTE .STK-MED ONE Stop: 08/13/20 18:43 Last Admin: 08/13/20 21:49 Dose: Not Given Documented by: Fentanyl/Bupivacaine HCl (Bupivacaine/Fentanyl/Ns 100 Ml Bag) 100 ml EPIDUR ASDIRECTED PRN PRN Reason: Pain Last Admin: 08/14/20 07:31 Dose: 100 ml Documented by: Lactated Ringer's (Ringers, Lactated) 1,000 mls @ 100 mls/hr IV ASDIRECTED MELISSA Last Admin: 08/14/20 04:59 Dose: 100 mls/hr Documented by: Ampicillin Sodium 2 gm/ Sodium (Chloride) 100 mls @ 200 mls/hr IV ONETIME ONE Stop: 08/13/20 13:59 Last Admin: 08/13/20 13:21 Dose: 200 mls/hr Documented by: Ampicillin Sodium 1 gm/ Sodium (Chloride) 100 mls @ 200 mls/hr IV Q4H [facility] Last Admin: 08/14/20 20:50 Dose: Not Given Documented by: Oxytocin/Lactated Ringer's (Pitocin In Lr 10 Units/1,000 Ml) 10 unit in 1,000 mls @ 12 mls/hr IV TITRATE [facility]; Protocol Last Titration: 08/14/20 01:00 Dose: 0 munits/min, 0 mls/hr Documented by: Oxytocin/Lactated Ringer's (Pitocin In Lr 10 Units/1,000 Ml) 10 unit in 1,000 mls @ 100 mls/hr IV .CONTINUOUS [facility] Potassium Chloride 10 meq/ (Lidocaine HCl 1 ml/ Premix) 101 mls @ 101 mls/hr IV Q1H [facility] Stop: 08/14/20 06:44 Last Admin: 08/14/20 07:08 Dose: Not Given Documented by: Potassium Chloride 10 meq/ (Premix) 100 mls @ 100 mls/hr IV Q1H [facility] Stop: 08/14/20 06:59 Last Admin: 08/14/20 10:06 Dose: Not Given Documented by: Labetalol HCl (Labetalol 100 Mg/20 Ml Mdv) 10 mg IVPUSH ONETIME ONE; Protocol Stop: 08/14/20 01:54 Last Admin: 08/14/20 02:10 Dose: 10 mg Documented by: Lidocaine HCl (Lidocaine 1% 50 Ml Mdv) 50 ml INJECT ONETIME ONE Stop: 08/13/20 12:42 Last Admin: 08/14/20 20:49 Dose: Not Given Documented by: Nalbuphine HCl (Nalbuphine 10 Mg/1 Ml Vial) 10 mg IVPUSH Q2H PRN PRN Reason: Pain Last Admin: 08/13/20 18:09 Dose: 10 mg Documented by: Ondansetron HCl (Ondansetron 4 Mg/2 Ml Sdv) 4 mg IVPUSH Q4H PRN PRN Reason: Nausea/Vomiting Last Admin: 08/14/20 00:32 Dose: 4 mg Documented by: Sodium Chloride (Sodium Chloride 0.9% 10 Ml Syringe) 10 ml FLUSH ASDIRECTED PRN PRN Reason: Keep Vein Open - Interaction Infant Disposition, : [place] in Room with Family Interaction: Holding Infant Feeding: Breastfed ; Nursed Well Support Person: - Recovery Exam Fundal Tone: Firm Fundal Level: 1 Fingerbreadths Below Umbilicus Fundal Placement: Midline Lochia Amount: Small Lochia Color: Rubra/Red Perineum Description: Intact, Minimal Bruising/Swelling Episiotomy/Laceration: None Bladder Status: Voiding Urinary Elimination: Voided - Exam General: Alert, Oriented, Cooperative GI/Abdominal Exam: Soft, Non-Tender - Problem List & Annotations (1) 36 weeks gestation of SNOMED Code(s): 27918870 Code(s): Z3A.36 - 36 WEEKS GESTATION OF Status: Acute Current Visit: Yes (2) Gestational hypertension SNOMED Code(s): 87158925 Code(s): O13.9 - GESTATIONAL HTN W/O SIGNIFICANT PROTEINURIA, UNSP TRIMESTER Status: Acute Current Visit: Yes Qualifiers: Trimester: third trimester Qualified Code(s): O13.3 - Gestational [-induced] hypertension without significant proteinuria, third trimester (3) Vaginal delivery SNOMED Code(s): 539823069 Code(s): O80 - ENCOUNTER FOR FULL-TERM UNCOMPLICATED DELIVERY Status: Acute Current Visit: Yes - Problem List Review Problem List Initiated/Reviewed/Updated: Yes - Assessment Assessment:: PPD#1 - Plan Plan:: Routine cares Breast feeding BP's normal to mild range Continue oral potassium supplementation, repeat tomorrow Discharge tomorrow
[2020-08-15] MEDS: Potassium Chloride 20 MEQ Tab.ER PO SCH ×3 (08:32→21:31)
[2020-08-15] MEDS: Prenatal Multivitamin with Calcium/Folic Acid/Iron Tab PO SCH (08:32)
[2020-08-15] MEDS: Docusate Sodium 100 MG Cap PO PRN (08:32)
--- NOTE | 2020-08-16 07:38 | PCM.PNPP ---
- General Info Date of Service: 08/16/20 Functional Status: Reports: Pain Controlled, Tolerating Diet, Ambulating, Urinating - Review of Systems General: Reports: No Symptoms HEENT: Denies: Headaches, Visual Changes Pulmonary: Reports: No Symptoms Cardiovascular: Reports: No Symptoms Gastrointestinal: Reports: No Symptoms Genitourinary: Reports: No Symptoms Musculoskeletal: Reports: No Symptoms - Patient Data Vital Signs - Most Recent: Last Vital Signs Temp 36.7 C 08/16/20 02:36 Pulse 105 H 08/16/20 02:36 Resp 14 08/16/20 02:36 BP 150/92 H 08/16/20 02:40 Pulse Ox 98 08/16/20 02:36 Weight - Most Recent: 98.384 kg Lab Results - Last 24 Hours: Laboratory Results - last 24 hr 08/16/20 Range/Units 05:05 Sodium 147 H (136-145) mEq/L Potassium 3.1 L (3.5-5.1) mEq/L Chloride 110 H (98-107) mEq/L Carbon Dioxide 27 (21-32) mEq/L Anion Gap 13.1 (5-15) BUN 6 L (7-18) mg/dL Creatinine 0.8 (0.55-1.02) mg/dL Est Cr Clr Drug Dosing 99.25 mL/min Estimated GFR (MDRD) > 60 (>60) mL/min BUN/Creatinine Ratio 7.5 L (14-18) Glucose 92 (70-99) mg/dL Calcium 7.9 L (8.5-10.1) mg/dL Med Orders - Current: Current Medications Acetaminophen (Acetaminophen 325 Mg Tab) 650 mg PO Q6H PRN PRN Reason: mild pain or fever Benzocaine/Menthol (Benzocaine/Menthol 20%-0.5% [place] 56 Gm Canister) 0 gm TOP ASDIRECTED PRN PRN Reason: Perineal Comfort Measure Last Admin: 08/14/20 10:37 Dose: 1 can Documented by: Docusate Sodium (Docusate Sodium 100 Mg Cap) 100 mg PO BID PRN PRN Reason: Constipation Last Admin: 08/15/20 08:32 Dose: 100 mg Documented by: Hydrocortisone Acetate (Hydrocortisone Acetate 25 Mg Supp) 25 mg RECTAL BID PRN PRN Reason: Hemorrhoid pain Oxytocin/Lactated Ringer's (Pitocin In Lr 10 Units/1,000 Ml) 10 unit in 1,000 mls @ 100 mls/hr IV TITRATE MELISSA; Protocol Ibuprofen (Ibuprofen 600 Mg Tab) 600 mg PO Q6H PRN PRN Reason: Mild pain or fever Magnesium Hydroxide (Magnesium Hydroxide 400 Mg/5 Ml Susp 30 Ml Cup) 30 ml PO BEDTIME PRN PRN Reason: Constipation Potassium Chloride (Potassium Chloride 20 Meq Tab.Er) 40 meq PO TID MELISSA Last Admin: 08/15/20 21:31 Dose: 40 meq Documented by: Prenat Multivit/[place]/Iron/Folic Ac ( Multivitamin With Calcium/Folic Acid/Iron Tab) 1 each PO DAILY MELISSA Last Admin: 08/15/20 08:32 Dose: 1 each Documented by: Soumya Brown (Soumya Brown Medicated Pads 40/Jar) 1 pad TOP ASDIRECTED PRN PRN Reason: Perineal Comfort Measure Last Admin: 08/14/20 10:37 Dose: 1 tub Documented by: Discontinued Medications Ampicillin Sodium (Ampicillin 2 Gm Advvial) Confirm Administered Dose 2 gm IV .STK-MED ONE Stop: 08/13/20 13:19 Last Admin: 08/13/20 18:15 Dose: Not Given Documented by: Bupivacaine HCl (Bupivacaine 0.25% 10 Ml Sdv) 30 ml .ROUTE .STK-MED ONE Stop: 08/14/20 12:01 Calcium Gluconate (Calcium Gluconate 10% 1 Gm/10 Ml Sdv) 1 gm IV ASDIRECTED PRN PRN Reason: respiratory distress Diphenhydramine HCl (Diphenhydramine 50 Mg/Ml Sdv) 25 mg IVPUSH Q6H PRN PRN Reason: pruritis Ephedrine Sulfate (Ephedrine 50 Mg/Ml Sdv) 5 mg IVPUSH ASDIRECTED PRN PRN Reason: Hypotension Fentanyl (Fentanyl 100 Mcg/2 Ml Sdv) 100 mcg EPIDUR Q3H PRN PRN Reason: Pain Last Admin: 08/14/20 03:53 Dose: 100 mcg Documented by: Fentanyl (Fentanyl 100 Mcg/2 Ml Sdv) Confirm Administered Dose 100 mcg .ROUTE .STK-MED ONE Stop: 08/13/20 18:43 Last Admin: 08/13/20 21:49 Dose: Not Given Documented by: Fentanyl/Bupivacaine HCl (Bupivacaine/Fentanyl/Ns 100 Ml Bag) 100 ml EPIDUR ASDIRECTED PRN PRN Reason: Pain Last Admin: 08/14/20 07:31 Dose: 100 ml Documented by: Lactated Ringer's (Ringers, Lactated) 1,000 mls @ 100 mls/hr IV ASDIRECTED MELISSA Last Admin: 08/14/20 04:59 Dose: 100 mls/hr Documented by: Ampicillin Sodium 2 gm/ Sodium (Chloride) 100 mls @ 200 mls/hr IV ONETIME ONE Stop: 08/13/20 13:59 Last Admin: 08/13/20 13:21 Dose: 200 mls/hr Documented by: Ampicillin Sodium 1 gm/ Sodium (Chloride) 100 mls @ 200 mls/hr IV Q4H [facility] Last Admin: 08/14/20 20:50 Dose: Not Given Documented by: Oxytocin/Lactated Ringer's (Pitocin In Lr 10 Units/1,000 Ml) 10 unit in 1,000 mls @ 12 mls/hr IV TITRATE MELISSA; Protocol Last Titration: 08/14/20 01:00 Dose: 0 munits/min, 0 mls/hr Documented by: Oxytocin/Lactated Ringer's (Pitocin In Lr 10 Units/1,000 Ml) 10 unit in 1,000 mls @ 100 mls/hr IV .CONTINUOUS MELISSA Potassium Chloride 10 meq/ (Lidocaine HCl 1 ml/ Premix) 101 mls @ 101 mls/hr IV Q1H [facility] Stop: 08/14/20 06:44 Last Admin: 08/14/20 07:08 Dose: Not Given Documented by: Potassium Chloride 10 meq/ (Premix) 100 mls @ 100 mls/hr IV Q1H [facility] Stop: 08/14/20 06:59 Last Admin: 08/14/20 10:06 Dose: Not Given Documented by: Labetalol HCl (Labetalol 100 Mg/20 Ml Mdv) 10 mg IVPUSH ONETIME ONE; Protocol Stop: 08/14/20 01:54 Last Admin: 08/14/20 02:10 Dose: 10 mg Documented by: Lidocaine HCl (Lidocaine 1% 50 Ml Mdv) 50 ml INJECT ONETIME ONE Stop: 08/13/20 12:42 Last Admin: 08/14/20 20:49 Dose: Not Given Documented by: Nalbuphine HCl (Nalbuphine 10 Mg/1 Ml Vial) 10 mg IVPUSH Q2H PRN PRN Reason: Pain Last Admin: 08/13/20 18:09 Dose: 10 mg Documented by: Ondansetron HCl (Ondansetron 4 Mg/2 Ml Sdv) 4 mg IVPUSH Q4H PRN PRN Reason: Nausea/Vomiting Last Admin: 08/14/20 00:32 Dose: 4 mg Documented by: Sodium Chloride (Sodium Chloride 0.9% 10 Ml Syringe) 10 ml FLUSH ASDIRECTED PRN PRN Reason: Keep Vein Open - Interaction Infant Disposition, : [place] in Room with Family Infant Interaction: Holding Feeding: Breastfed ; Nursed Well Support Person: - Recovery Exam Fundal Tone: Firm Fundal Level: 1 Fingerbreadths Below Umbilicus Fundal Placement: Midline Lochia Amount: Small Lochia Color: Rubra/Red Perineum Description: Intact, Minimal Bruising/Swelling Episiotomy/Laceration: None Bladder Status: Voiding Urinary Elimination: Voided - Exam General: Alert, Oriented, Cooperative GI/Abdominal Exam: Soft, Non-Tender - Problem List & Annotations (1) 36 weeks gestation of SNOMED Code(s): 57068088 Code(s): Z3A.36 - 36 WEEKS GESTATION OF Status: Acute Current Visit: Yes (2) Gestational hypertension SNOMED Code(s): 90845190 Code(s): O13.9 - GESTATIONAL HTN W/O SIGNIFICANT PROTEINURIA, UNSP TRIMESTER Status: Acute Current Visit: Yes Qualifiers: Trimester: third trimester Qualified Code(s): O13.3 - Gestational [-induced] hypertension without significant proteinuria, third trimester (3) Vaginal delivery SNOMED Code(s): 556779453 Code(s): O80 - ENCOUNTER FOR FULL-TERM UNCOMPLICATED DELIVERY Status: Acute Current Visit: Yes - Problem List Review Problem List Initiated/Reviewed/Updated: Yes - Assessment Assessment:: PPD#2 - Plan Plan:: Routine cares Breast feeding BP's are mild range, sometimes at upper range. Asymptomatic. Will discharge to home today with BP check still this week. Repeat K+ today improved. No further supplementation Discharge today
--- NOTE | 2020-08-16 07:43 | PCM.DCSUM1 ---
Discharge Summary - Discharge Data Discharge Date: 08/16/20 Discharge Disposition: Home, Self-Care 01 Condition: Good - Referral to Home Health Primary Care Physician: Renee Perez MD - Discharge Diagnosis/Problem(s) (1) 36 weeks gestation of SNOMED Code(s): 83131747 ICD Code: Z3A.36 - 36 WEEKS GESTATION OF Status: Acute Current Visit: Yes (2) Gestational hypertension SNOMED Code(s): 22520536 ICD Code: O13.9 - GESTATIONAL HTN W/O SIGNIFICANT PROTEINURIA, UNSP TRIMESTER Status: Acute Current Visit: Yes Qualifiers: Trimester: third trimester Qualified Code(s): O13.3 - Gestational [-induced] hypertension without significant proteinuria, third trimester (3) Vaginal delivery SNOMED Code(s): 174681184 ICD Code: O80 - ENCOUNTER FOR FULL-TERM UNCOMPLICATED DELIVERY Status: Acute Current Visit: Yes - Patient Summary/Data Complications: None Consults: None Recommended Follow-up Testing/Procedures: Follow up in 1 week for BP check and 3 weeks for check Hospital Course: 20 y/o at 36 0/7 wks who presented for IOL for concerns of gestational HTN, but with BP's approaching severe range. Only one BP required treatment in labor. Was not on magnesium in labor. Underwent an uncomplicated . See delivery note. BP's normal to mild range. Only other thing of note was had low potassium in labor. This was supplemented both IV and oral in labor and . Value approaching normal by day of discharge. Was discharged home on PPD#2 - Patient Instructions Diet: Regular Diet as Tolerated Activity: As Tolerated Activity, Other: Pelvic rest for 6 weeks Driving: May Drive Today Showering/Bathing: May Shower Showering/Bathing, Other: May Bathe Notify Provider of: Fever, Increased Pain, Swelling and Redness, Drainage, Nausea and/or Vomiting - Discharge Plan *PRESCRIPTION DRUG MONITORING PROGRAM REVIEWED*: No *COPY OF PRESCRIPTION DRUG MONITORING REPORT IN PATIENT [place]: No Home Medications: Home Meds Pnv No.95/Ferrous Fum/Folic AC [ Vitamin Tablet] 1 tab PO DAILY 08/13/20 [History] Docusate Sodium [Colace] 100 mg PO BID PRN cap 08/15/20 [Rx] Ibuprofen [Motrin] 600 mg PO Q6H PRN tablet 08/15/20 [Rx] Referrals: Renee Perez MD [Primary Care Provider] - (1 week for BP check 3 weeks for check ) - Discharge Summary/Plan Comment DC Time >30 min.: No - Patient Data Vitals - Most Recent: Last Vital Signs Temp 36.7 C 08/16/20 02:36 Pulse 105 H 08/16/20 02:36 Resp 14 08/16/20 02:36 BP 150/92 H 08/16/20 02:40 Pulse Ox 98 08/16/20 02:36 Weight - Most Recent: 98.384 kg Lab Results - Last 24 hrs: Laboratory Results - last 24 hr 08/16/20 Range/Units 05:05 Sodium 147 H (136-145) mEq/L Potassium 3.1 L (3.5-5.1) mEq/L Chloride 110 H (98-107) mEq/L Carbon Dioxide 27 (21-32) mEq/L Anion Gap 13.1 (5-15) BUN 6 L (7-18) mg/dL Creatinine 0.8 (0.55-1.02) mg/dL Est Cr Clr Drug Dosing 99.25 mL/min Estimated GFR (MDRD) > 60 (>60) mL/min BUN/Creatinine Ratio 7.5 L (14-18) Glucose 92 (70-99) mg/dL Calcium 7.9 L (8.5-10.1) mg/dL Med Orders - Current: Current Medications Acetaminophen (Acetaminophen 325 Mg Tab) 650 mg PO Q6H PRN PRN Reason: mild pain or fever Benzocaine/Menthol (Benzocaine/Menthol 20%-0.5% [place] 56 Gm Canister) 0 gm TOP ASDIRECTED PRN PRN Reason: Perineal Comfort Measure Last Admin: 08/14/20 10:37 Dose: 1 can Documented by: Docusate Sodium (Docusate Sodium 100 Mg Cap) 100 mg PO BID PRN PRN Reason: Constipation Last Admin: 08/15/20 08:32 Dose: 100 mg Documented by: Hydrocortisone Acetate (Hydrocortisone Acetate 25 Mg Supp) 25 mg RECTAL BID PRN PRN Reason: Hemorrhoid pain Oxytocin/Lactated Ringer's (Pitocin In Lr 10 Units/1,000 Ml) 10 unit in 1,000 mls @ 100 mls/hr IV TITRATE MELISSA; Protocol Ibuprofen (Ibuprofen 600 Mg Tab) 600 mg PO Q6H PRN PRN Reason: Mild pain or fever Magnesium Hydroxide (Magnesium Hydroxide 400 Mg/5 Ml Susp 30 Ml Cup) 30 ml PO BEDTIME PRN PRN Reason: Constipation Potassium Chloride (Potassium Chloride 20 Meq Tab.Er) 40 meq PO TID MELISSA Last Admin: 08/15/20 21:31 Dose: 40 meq Documented by: Prenat Multivit/[place]/Iron/Folic Ac ( Multivitamin With Calcium/Folic Acid/Iron Tab) 1 each PO DAILY MELISSA Last Admin: 08/15/20 08:32 Dose: 1 each Documented by: Soumya Brown (Soumya Brown Medicated Pads 40/Jar) 1 pad TOP ASDIRECTED PRN PRN Reason: Perineal Comfort Measure Last Admin: 08/14/20 10:37 Dose: 1 tub Documented by: Discontinued Medications Ampicillin Sodium (Ampicillin 2 Gm Advvial) Confirm Administered Dose 2 gm IV .STThemBid-MED ONE Stop: 08/13/20 13:19 Last Admin: 08/13/20 18:15 Dose: Not Given Documented by: Bupivacaine HCl (Bupivacaine 0.25% 10 Ml Sdv) 30 ml .ROUTE .STThemBid-MED ONE Stop: 08/14/20 12:01 Calcium Gluconate (Calcium Gluconate 10% 1 Gm/10 Ml Sdv) 1 gm IV ASDIRECTED PRN PRN Reason: respiratory distress Diphenhydramine HCl (Diphenhydramine 50 Mg/Ml Sdv) 25 mg IVPUSH Q6H PRN PRN Reason: pruritis Ephedrine Sulfate (Ephedrine 50 Mg/Ml Sdv) 5 mg IVPUSH ASDIRECTED PRN PRN Reason: Hypotension Fentanyl (Fentanyl 100 Mcg/2 Ml Sdv) 100 mcg EPIDUR Q3H PRN PRN Reason: Pain Last Admin: 08/14/20 03:53 Dose: 100 mcg Documented by: Fentanyl (Fentanyl 100 Mcg/2 Ml Sdv) Confirm Administered Dose 100 mcg .ROUTE .STK-MED ONE Stop: 08/13/20 18:43 Last Admin: 08/13/20 21:49 Dose: Not Given Documented by: Fentanyl/Bupivacaine HCl (Bupivacaine/Fentanyl/Ns 100 Ml Bag) 100 ml EPIDUR ASDIRECTED PRN PRN Reason: Pain Last Admin: 08/14/20 07:31 Dose: 100 ml Documented by: Lactated Ringer's (Ringers, Lactated) 1,000 mls @ 100 mls/hr IV ASDIRECTED [facility]END[facility] TO [facility] Last Admin: 08/14/20 04:59 Dose: 100 mls/hr Documented by: Ampicillin Sodium 2 gm/ Sodium (Chloride) 100 mls @ 200 mls/hr IV ONETIME ONE Stop: 08/13/20 13:59 Last Admin: 08/13/20 13:21 Dose: 200 mls/hr Documented by: Ampicillin Sodium 1 gm/ Sodium (Chloride) 100 mls @ 200 mls/hr IV Q4H [facility] Last Admin: 08/14/20 20:50 Dose: Not Given Documented by: Oxytocin/Lactated Ringer's (Pitocin In Lr 10 Units/1,000 Ml) 10 unit in 1,000 mls @ 12 mls/hr IV TITRATE [facility] TO [facility]; Protocol Last Titration: 08/14/20 01:00 Dose: 0 munits/min, 0 mls/hr Documented by: Oxytocin/Lactated Ringer's (Pitocin In Lr 10 Units/1,000 Ml) 10 unit in 1,000 mls @ 100 mls/hr IV .CONTINUOUS [facility]END[facility] TO [facility] Potassium Chloride 10 meq/ (Lidocaine HCl 1 ml/ Premix) 101 mls @ 101 mls/hr IV Q1H [facility] Stop: 08/14/20 06:44 Last Admin: 08/14/20 07:08 Dose: Not Given Documented by: Potassium Chloride 10 meq/ (Premix) 100 mls @ 100 mls/hr IV Q1H [facility] Stop: 08/14/20 06:59 Last Admin: 08/14/20 10:06 Dose: Not Given Documented by: Labetalol HCl (Labetalol 100 Mg/20 Ml Mdv) 10 mg IVPUSH ONETIME ONE; Protocol Stop: 08/14/20 01:54 Last Admin: 08/14/20 02:10 Dose: 10 mg Documented by: Lidocaine HCl (Lidocaine 1% 50 Ml Mdv) 50 ml INJECT ONETIME ONE Stop: 08/13/20 12:42 Last Admin: 08/14/20 20:49 Dose: Not Given Documented by: Nalbuphine HCl (Nalbuphine 10 Mg/1 Ml Vial) 10 mg IVPUSH Q2H PRN PRN Reason: Pain Last Admin: 08/13/20 18:09 Dose: 10 mg Documented by: Ondansetron HCl (Ondansetron 4 Mg/2 Ml Sdv) 4 mg IVPUSH Q4H PRN PRN Reason: Nausea/Vomiting Last Admin: 08/14/20 00:32 Dose: 4 mg Documented by: Sodium Chloride (Sodium Chloride 0.9% 10 Ml Syringe) 10 ml FLUSH ASDIRECTED PRN PRN Reason: Keep Vein Open
[2020-08-16] MEDS: Prenatal Multivitamin with Calcium/Folic Acid/Iron Tab PO SCH (09:20)
[2020-08-16] MEDS: Potassium Chloride 20 MEQ Tab.ER PO SCH ×2 (09:20→19:19)
[2020-08-16] MEDS ORDERED: NIFEdipine 30 MG Tab.ER PO ONE (10:43)
--- NOTE | 2020-08-16 10:45 | PCM.SN.2 ---
- Free Text/Narrative Note: 1045 Patient with BP still in mild range, but diastolic value at 104. Will start 30 mg of Nifedipine to be given now and once daily on discharge. Still follow up with Dr. Perez this week for BP check Elsa Parsons MD
[2020-08-16] MEDS ORDERED: Measles, Mumps & Rubella Vaccine 0.5 ML SDV SUBCUT ONE (13:13)
== END 2020-08-16 20:15 | disposition home or self-care (01) | DRG 807 ==
LOC: JD.OB 08:23 → OBSVTOIN 08-14 08:23 → JD.OB 08-14 08:24 → EDSTATUS 09-10 11:43
PROVIDERS: ADMIT Obstetrics & Gynecology; ATTEND Obstetrics & Gynecology
PROC: 10E0XZZ Delivery of Products of Conception, External Approach (ICD-10-PCS; principal; 2020-08-14)
PROC: 10907ZC Drainage of Amniotic Fluid, Therapeutic from Products of Conception, Via Natural or Artificial Opening (ICD-10-PCS; 2020-08-14)
PROC: 3E033VJ Introduction of Other Hormone into Peripheral Vein, Percutaneous Approach (ICD-10-PCS; 2020-08-14)
PROC: 3E0R3BZ Introduction of Anesthetic Agent into Spinal Canal, Percutaneous Approach (ICD-10-PCS; 2020-08-14)
PROC: 10H07YZ Insertion of Other Device into Products of Conception, Via Natural or Artificial Opening (ICD-10-PCS; 2020-08-14)
DX: O13.4 Gestational [pregnancy-induced] hypertension without significant proteinuria, complicating childbirth (principal); Z37.0 Single live birth; Z3A.36 36 weeks gestation of pregnancy; Z20.822 Contact with and (suspected) exposure to COVID-19
CPT/HCPCS: 36415; 51702; 59025; 59409; 80048; 80053; 82565; 82570; 83615; 83735; 84156; 84450; 84460; 84520; 84550; 85025; 86592; 86803; 86850; 86900; 86901; 90471; 90707; A9270-GY; J0290; J2300; J2405; J2590; J3010; J3480; J3490; J7120; U0002

== ENCOUNTER 2022-03-15 07:14 | Emergency (ER) | payer BC, MEDICAID, OTHER ==
[2022-03-15] MEDS ORDERED: Ondansetron 4 MG/2 ML SDV IVPUSH ONE (07:33)
[2022-03-15] MEDS ORDERED: Sodium Chloride 0.9% 10 ML Syringe FLUSH PRN (07:33)
[2022-03-15] MEDS ORDERED: LORazepam 2 MG/ML SDV IVPUSH ONE (07:34)
[2022-03-15] MEDS ORDERED: Sodium Chloride 0.9% 1,000 ML IV SCH (07:45)
[2022-03-15] MEDS ORDERED: Sodium Chloride 0.9% 10 ML Syringe FLUSH ONE (08:52)
[2022-03-15] MEDS ORDERED: Iopamidol 755 Mg/ML 100 ML Bottle IVPUSH ONE (08:52)
[2022-03-15] MEDS ORDERED: Sodium Chloride 0.9% 1,000 ML IV ONE (09:12)
[2022-03-15] MEDS ORDERED: Magnesium Sulfate/Water 2 GM in Premix Bag 1 BAG IV ONE (09:13)
[2022-03-15] MEDS ORDERED: cefTRIAXone 1 GM in Sodium Chloride 0.9% 100 ML IV ONE (09:40)
== END 2022-03-15 12:10 | disposition home or self-care (01) ==
LOC: JD.ED 07:14
DX: A08.4 Viral intestinal infection, unspecified (principal); E86.0 Dehydration; N39.0 Urinary tract infection, site not specified; Z79.899 Other long term (current) drug therapy
CPT/HCPCS: 36415; 74177; 80053; 81001; 82009; 82800; 82947; 83735; 83930; 84703; 85025; 86140; 96365; 96366; 96367; 96375; 99284; J0696; J2060; J2405; J3475; J3490; J7030; Q9967

== ENCOUNTER 2022-03-15 20:31 | Emergency (ER) | payer SELFPAY ==
[2022-03-15] MEDS ORDERED: Sodium Chloride 0.9% 1,000 ML IV ONE (21:24)
[2022-03-15] MEDS ORDERED: LORazepam 2 MG/ML SDV IVPUSH STA (21:24)
[2022-03-15] MEDS ORDERED: Metoclopramide 10 MG/2 ML SDV IVPUSH STA (21:24)
[2022-03-15] MEDS ORDERED: Prochlorperazine 10 MG/2 ML SDV IVPUSH ONE (23:29)
== END 2022-03-16 00:55 | disposition home or self-care (01) ==
LOC: JD.ED 20:31
DX: R11.2 Nausea with vomiting, unspecified (principal)
CPT/HCPCS: 93005; 96361; 96374; 96375; 99284; J0780; J2060; J2765; J7030

== ENCOUNTER 2022-03-23 08:52 | Emergency (ER) | payer BC ==
[2022-03-23] MEDS ORDERED: Sodium Chloride 0.9% 1,000 ML IV ONE (12:15)
[2022-03-23] MEDS ORDERED: Metoclopramide 10 MG/2 ML SDV IVPUSH ONE (12:16)
== END 2022-03-23 14:51 | disposition home or self-care (01) ==
LOC: JD.ED 08:52
DX: R11.2 Nausea with vomiting, unspecified (principal); R19.7 Diarrhea, unspecified
CPT/HCPCS: 36415; 80053; 81001; 81025; 82977; 83690; 85025; 86140; 96361; 96374; 99284; J2765; J7030; 99283

== ENCOUNTER 2023-01-15 15:37 | Emergency (ER) | payer MEDICAID | END 2023-01-15 17:28 | disposition home or self-care (01) | LOC: JD.ED 15:37 | DX: S93.401A Sprain of unspecified ligament of right ankle, initial encounter (principal); K21.9 Gastro-esophageal reflux disease without esophagitis; Z79.899 Other long term (current) drug therapy; W10.9XXA Fall (on) (from) unspecified stairs and steps, initial encounter | CPT/HCPCS: 73610-26-RT; 73610-RT; 99282; 99283 ==

== ENCOUNTER 2023-03-10 18:57 | Emergency (ER) | payer MEDICAID ==
[2023-03-10] MEDS ORDERED: Sodium Chloride 0.9% 10 ML Syringe FLUSH PRN (19:30)
[2023-03-10] MEDS ORDERED: Ondansetron 4 MG/2 ML SDV IVPUSH ONE (19:30)
[2023-03-10 19:56] LABS: BASOPHILS ABSOLUTE AUTO 0.1 K/mm3 (0.0-0.2); BASOPHILS PERCENT AUTO 0.4 % (0.0-1.0); EOSINOPHILS PERCENT AUTO 0.1 % (0.0-6.0); HEMATOCRIT 47.3 % (37.0-47.0); HEMOGLOBIN 16.5 gm/dl (12.0-16.0); IMMATURE GRAN ABSOLUTE AUTO 0.07 K/mm3 (0.00-0.05); IMMATURE GRAN PERCENT AUTO 0.4 % (0.0-0.4); LYMPHOCYTES PERCENT AUTO 6.4 % (24.0-44.0); MEAN CORPUSCULAR HEMOGLOBIN 30.5 pg (28.0-32.0); MEAN CORPUSCULAR HGB CONC 34.9 g/dl (32.0-36.0); MEAN CORPUSCULAR VOLUME 87.4 fl (83.0-99.0); MEAN PLATELET VOLUME 8.6 fl (9.4-12.3); MONOCYTES ABSOLUTE AUTO 0.4 K/mm3 (0.0-0.8); MONOCYTES PERCENT AUTO 2.4 % (0.0-8.0); NEUTROPHILS ABSOLUTE AUTO 14.7 K/mm3 (1.8-7.7); NEUTROPHILS PERCENT AUTO 90.3 % (41.0-71.0); PLATELET COUNT,PLT 377 K/mm3 (150-400); RED BLOOD CELL COUNT 5.41 M/mm3 (4.10-5.30); WHITE BLOOD CELL COUNT,WBC 16.25 K/mm3 (3.9-11.3)
[2023-03-10 20:16] LABS: A/G RATIO 1.1 (1-2); ALBUMIN 5.1 g/dl (3.4-5.0); ANION GAP 21.7 (5-15); BILIRUBIN TOTAL 0.7 mg/dL (0.2-1.0); BUN/CREATININE RATIO 14.7 (14-18); CALCIUM 10.9 mg/dL (8.5-10.1); CREATININE 1.7 mg/dL (0.55-1.02); EST CRCL DRUG DOSING (CG) 45.92 mL/min; MAGNESIUM 1.8 mg/dL (1.8-2.4); POTASSIUM,K 4.7 mEq/L (3.5-5.1); PROTEIN TOTAL,TP 9.7 g/dl (6.4-8.2)
[2023-03-10 20:42] LABS: APPEARANCE,URINE SLT CLOUDY (Clear); BILIRUBIN,URINE 1+ (Negative); COLOR,URINE DARK YELLOW (Yellow); GLUCOSE,URINE NEGATIVE (Negative); KETONES,URINE 2+ (Negative); LEUKOCYTE ESTERASE,URINE NEGATIVE (Negative); NITRITE,URINE NEGATIVE (Negative); OCCULT BLOOD,URINE 1+ (Negative); PROTEIN,URINE 2+ (Negative); UROBILINOGEN,URINE 0.2 (0.2-1.0)
[2023-03-10] MEDS ORDERED: Sodium Chloride 0.9% 1,000 ML IV ONE (20:56)
[2023-03-10] MEDS ORDERED: Prochlorperazine 10 MG/2 ML SDV IVPUSH ONE (20:56)
[2023-03-10 20:59] LABS: BACTERIA,URINE MANY /hpf (FEW); MUCUS,URINE MANY /hpf (FEW)
[2023-03-10 20:59] LABS: CORONAVIRUS COVID-19 NAA NEGATIVE (NEGATIVE); INFLUENZA A NAA NEGATIVE (NEGATIVE); RESPIRATORY SYNCYTIAL VIR NAA NEGATIVE (NEGATIVE)
== END 2023-03-11 00:50 | disposition home or self-care (01) ==
LOC: JD.ED 18:57
DX: K92.0 Hematemesis (principal)
CPT/HCPCS: 0241U; 36415; 80053; 81001; 81025; 83735; 85025; 96361; 96374; 96375; 99284; J0780; J2405; J3490; J7030

== ENCOUNTER 2024-01-24 10:02 | Emergency (ER) | payer MEDICAID ==
[2024-01-24] MEDS: Metoclopramide 10 MG/2 ML SDV IVPUSH ONE ×2 (13:27→19:43)
[2024-01-24] MEDS: Sodium Chloride 0.9% 1,000 ML IV ONE ×2 (13:27→15:16)
[2024-01-24 14:29] LABS: BASOPHILS PERCENT AUTO 0.1 % (0.0-1.0); EOSINOPHILS ABSOLUTE AUTO 0.1 K/mm3 (0.0-0.4); EOSINOPHILS PERCENT AUTO 0.4 % (0.0-6.0); HEMATOCRIT 44.6 % (37.0-47.0); HEMOGLOBIN 15.4 gm/dl (12.0-16.0); IMMATURE GRAN PERCENT AUTO 0.6 % (0.0-0.4); LYMPHOCYTES ABSOLUTE AUTO 1.2 K/mm3 (1.0-4.8); LYMPHOCYTES PERCENT AUTO 6.9 % (24.0-44.0); MEAN CORPUSCULAR HEMOGLOBIN 30.1 pg (28.0-32.0); MEAN CORPUSCULAR HGB CONC 34.5 g/dl (32.0-36.0); MEAN CORPUSCULAR VOLUME 87.3 fl (83.0-99.0); MEAN PLATELET VOLUME 8.9 fl (9.4-12.3); MONOCYTES ABSOLUTE AUTO 1.3 K/mm3 (0.0-0.8); MONOCYTES PERCENT AUTO 7.5 % (0.0-8.0); NEUTROPHILS ABSOLUTE AUTO 14.7 K/mm3 (1.8-7.7); NEUTROPHILS PERCENT AUTO 84.5 % (41.0-71.0); PLATELET COUNT,PLT 361 K/mm3 (150-400); RED BLOOD CELL COUNT 5.11 M/mm3 (4.10-5.30); WHITE BLOOD CELL COUNT,WBC 17.37 K/mm3 (3.9-11.3)
[2024-01-24 14:55] LABS: A/G RATIO 1.1 (1-2); ALBUMIN 4.5 g/dl (3.4-5.0); ANION GAP 19.7 (5-15); BILIRUBIN TOTAL 0.9 mg/dL (0.2-1.0); BUN/CREATININE RATIO 21.3 (14-18); CREATININE 1.5 mg/dL (0.55-1.02); EST CRCL DRUG DOSING (CG) 51.59 mL/min; POTASSIUM,K 2.7 mEq/L (3.5-5.1); PROTEIN TOTAL,TP 8.6 g/dl (6.4-8.2)
[2024-01-24 15:15] LABS: INR 1.09; PROTHROMBIN TIME 11.5 SECONDS (9.7-12.0)
[2024-01-24 15:17] LABS: PTT,PARTIAL THROMBOPLSTIN TIME 27.3 SECONDS (21.7-31.4)
[2024-01-24] MEDS: Potassium Chloride 20 MEQ Tab.ER PO ONE (15:17)
[2024-01-24] MEDS: Potassium Chloride 10 MEQ in Premix Bag 1 BAG IV SCH (15:20)
[2024-01-24 15:44] LABS: LACTIC ACID 1.2 mmol/L (0.4-2.0)
[2024-01-24] MEDS: Ondansetron 4 MG/2 ML SDV IVPUSH ONE (16:28)
[2024-01-24] MEDS: diphenhydrAMINE 50 MG/ML SDV IVPUSH ONE (20:25)
[2024-01-24] MEDS: Lactated Ringers 1,000 ML IV SCH (20:25)
[2024-01-24] MEDS: droPERidol 5 MG/2 ML SDV IVPUSH ONE (20:29)
[2024-01-24 20:38] LABS: APPEARANCE,URINE CLOUDY (Clear); BILIRUBIN,URINE 1+ (Negative); COLOR,URINE YELLOW (Yellow); GLUCOSE,URINE NEGATIVE (Negative); KETONES,URINE 4+ (Negative); LEUKOCYTE ESTERASE,URINE TRACE (Negative); NITRITE,URINE NEGATIVE (Negative); OCCULT BLOOD,URINE 2+ (Negative); PROTEIN,URINE 2+ (Negative)
[2024-01-24 20:48] LABS: BARBITURATE SCREEN,URINE NEGATIVE (CUTOFF=200); BENZODIAZEPINES SCREEN,URINE NEGATIVE (CUTOFF=150); BUPRENORPHINE SCREEN,URINE NEGATIVE (CUTOFF=10); METHADONE SCREEN, URINE NEGATIVE (CUTOFF=200); METHAMPHETAMINES SCREEN, URINE NEGATIVE (CUTOFF=500); OXYCODONE SCREEN,URINE NEGATIVE (CUT0FF=100); THC SCREEN,URINE 20 NG/ML PRESUMPTIVE POSITIVE (CUTOFF=50)
[2024-01-24 20:53] LABS: BACTERIA,URINE MANY /hpf (FEW); MUCUS,URINE FEW /hpf (FEW)
[2024-01-24 20:55] LABS: AMPHETAMINES SCREEN, URINE NEGATIVE (CUTOFF=500)
== END 2024-01-24 22:22 | disposition home or self-care (01) ==
LOC: JD.ED 10:02
DX: R11.2 Nausea with vomiting, unspecified (principal); R19.7 Diarrhea, unspecified; R30.9 Painful micturition, unspecified
CPT/HCPCS: 36415; 80053; 80306; 81001; 83605; 83735; 85025; 85610; 85730; 87040; 87086; 87428; 93005; 96361; 96365; 96366; 96375; 96376; 99284; A9270; J1200; J1790; J2405; J2765; J3480; J7030; J7120

== ENCOUNTER 2024-10-30 07:54 | Inpatient (IN) | payer MEDICAID ==
[2024-10-30 08:48] LABS: BASOPHILS ABSOLUTE AUTO 0.1 K/mm3 (0.0-0.2); BASOPHILS PERCENT AUTO 0.3 % (0.0-1.0); EOSINOPHILS ABSOLUTE AUTO 0.0 K/mm3 (0.0-0.4); EOSINOPHILS PERCENT AUTO 0.0 % (0.0-6.0); IMMATURE GRAN ABSOLUTE AUTO 0.14 K/mm3 (0.00-0.05); IMMATURE GRAN PERCENT AUTO 0.6 % (0.0-0.4); LYMPHOCYTES ABSOLUTE AUTO 1.3 K/mm3 (1.0-4.8); LYMPHOCYTES PERCENT AUTO 5.0 % (24.0-44.0); MEAN PLATELET VOLUME 9.3 fl (9.4-12.3); MONOCYTES ABSOLUTE AUTO 1.4 K/mm3 (0.0-0.8); MONOCYTES PERCENT AUTO 5.6 % (0.0-8.0); NEUTROPHILS ABSOLUTE AUTO 22.3 K/mm3 (1.8-7.7); NEUTROPHILS PERCENT AUTO 88.5 % (41.0-71.0); NRBC ABSOLUTE 0.00 (0.00-0.02); NRBC PERCENT 0.0 % (0.0-0.2); RED BLOOD CELL COUNT 5.89 M/mm3 (4.10-5.30); WHITE BLOOD CELL COUNT,WBC 25.20 K/mm3 (3.9-11.3)
[2024-10-30 08:49] LABS: PLATELET COUNT,PLT 484 K/mm3 (150-400)
[2024-10-30] MEDS ORDERED: Sodium Chloride 0.9% 10 ML Syringe FLUSH PRN (08:54)
[2024-10-30 08:58] LABS: A/G RATIO 1.0 (1-2); ALANINE AMINOTRANSFERASE,ALT 54.0 U/L (14-59); ASPARTATE AMNIOTRANSFERASE,AST 42.0 U/L (15-37); BILIRUBIN TOTAL 0.8 mg/dL (0.2-1.0); BLOOD UREA NITROGEN,BUN 52.0 mg/dL (7-18); CARBON DIOXIDE,CO2 27.0 mEq/L (21-32); CHLORIDE,CL 98.0 mEq/L (98-107); CREATININE 2.9 mg/dL (0.55-1.02); EST CRCL DRUG DOSING (CG) 26.45 mL/min; ESTIMATED GFR 22.0 mL/min (>60); GLUCOSE RANDOM 146.0 mg/dL (70-99); POTASSIUM,K 3.6 mEq/L (3.5-5.1); PROTEIN TOTAL,TP 10.4 g/dl (6.4-8.2); SODIUM,NA 148.0 mEq/L (136-145)
[2024-10-30] MEDS: diphenhydrAMINE 50 MG/ML SDV IVPUSH ONE (09:49)
[2024-10-30] MEDS: droPERidol 2.5 MG/ML SDV IV ONE (09:49)
[2024-10-30 10:24] LABS: INR 1.12
[2024-10-30 10:25] LABS: PTT,PARTIAL THROMBOPLSTIN TIME 27.6 SECONDS (21.7-31.4)
[2024-10-30 10:32] LABS: LACTIC ACID 2.0 mmol/L (0.4-2.0)
[2024-10-30 10:46] LABS: TROPONIN I HIGH SENSITIVITY 10.0 pg/mL (<=51)
[2024-10-30 10:47] LABS: ETHANOL BLOOD MEDICAL 0.0 gm% (0.00)
[2024-10-30] MEDS: Sodium Chloride 0.9% 10 ML Syringe FLUSH PRN (11:05)
[2024-10-30] MEDS: Iopamidol 755 Mg/ML 100 ML Bottle IVPUSH ONE (11:06)
[2024-10-30] MEDS: metroNIDAZOLE/Normal Saline 500 MG in Premix Bag 1 BAG IV ONE (11:27)
[2024-10-30] MEDS: Lactated Ringers 1,000 ML IV SCH (14:36)
[2024-10-30 14:45] LABS: APPEARANCE,URINE CLEAR (Clear); GLUCOSE,URINE NEGATIVE (Negative); OCCULT BLOOD,URINE 2+ (Negative)
[2024-10-30 14:52] LABS: BUPRENORPHINE SCREEN,URINE NEGATIVE (CUTOFF=10); METHADONE SCREEN, URINE NEGATIVE (CUTOFF=200); METHAMPHETAMINES SCREEN, URINE NEGATIVE (CUTOFF=500); OXYCODONE SCREEN,URINE NEGATIVE (CUT0FF=100); THC SCREEN,URINE 20 NG/ML PRESUMPTIVE POSITIVE (CUTOFF=50)
[2024-10-30 14:55] LABS: AMPHETAMINES SCREEN, URINE NEGATIVE (CUTOFF=500)
[2024-10-30] MEDS: Ondansetron 4 MG/2 ML SDV IV PRN (14:55)
[2024-10-30] MEDS ORDERED: Capsaicin 0.1% Cream 42.5 GM Tube TOP PRN (15:19)
[2024-10-31 04:51] LABS: BASOPHILS ABSOLUTE AUTO 0.1 K/mm3 (0.0-0.2); BASOPHILS PERCENT AUTO 0.6 % (0.0-1.0); EOSINOPHILS ABSOLUTE AUTO 0.0 K/mm3 (0.0-0.4); EOSINOPHILS PERCENT AUTO 0.0 % (0.0-6.0); IMMATURE GRAN ABSOLUTE AUTO 0.09 K/mm3 (0.00-0.05); IMMATURE GRAN PERCENT AUTO 0.5 % (0.0-0.4); LYMPHOCYTES ABSOLUTE AUTO 2.5 K/mm3 (1.0-4.8); LYMPHOCYTES PERCENT AUTO 12.6 % (24.0-44.0); MEAN PLATELET VOLUME 9.5 fl (9.4-12.3); MONOCYTES ABSOLUTE AUTO 1.4 K/mm3 (0.0-0.8); MONOCYTES PERCENT AUTO 6.9 % (0.0-8.0); NEUTROPHILS ABSOLUTE AUTO 15.8 K/mm3 (1.8-7.7); NEUTROPHILS PERCENT AUTO 79.4 % (41.0-71.0); NRBC ABSOLUTE 0.00 (0.00-0.02); NRBC PERCENT 0.0 % (0.0-0.2); PLATELET COUNT,PLT 289 K/mm3 (150-400); RED BLOOD CELL COUNT 4.43 M/mm3 (4.10-5.30); WHITE BLOOD CELL COUNT,WBC 19.82 K/mm3 (3.9-11.3)
[2024-10-31 05:13] LABS: A/G RATIO 0.9 (1-2); ALANINE AMINOTRANSFERASE,ALT 43.0 U/L (14-59); ASPARTATE AMNIOTRANSFERASE,AST 34.0 U/L (15-37); BILIRUBIN TOTAL 0.9 mg/dL (0.2-1.0); BLOOD UREA NITROGEN,BUN 23.0 mg/dL (7-18); CARBON DIOXIDE,CO2 28.0 mEq/L (21-32); CHLORIDE,CL 110.0 mEq/L (98-107); CREATININE 1.1 mg/dL (0.55-1.02); EST CRCL DRUG DOSING (CG) 69.74 mL/min; ESTIMATED GFR 71.0 mL/min (>60); GLUCOSE RANDOM 97.0 mg/dL (70-99); POTASSIUM,K 3.4 mEq/L (3.5-5.1); PROTEIN TOTAL,TP 7.1 g/dl (6.4-8.2); SODIUM,NA 150.0 mEq/L (136-145)
[2024-10-31] MEDS: Ondansetron 4 MG Tab.DIS PO PRN (07:39)
[2024-10-31] MEDS: Remove Patch *NICOTINE TRDERM SCH (09:42)
[2024-10-31 15:03] LABS: BLOOD UREA NITROGEN,BUN 17.0 mg/dL (7-18); CARBON DIOXIDE,CO2 28.0 mEq/L (21-32); CHLORIDE,CL 109.0 mEq/L (98-107); CREATININE 1.1 mg/dL (0.55-1.02); EST CRCL DRUG DOSING (CG) 69.74 mL/min; ESTIMATED GFR 71.0 mL/min (>60); GLUCOSE RANDOM 118.0 mg/dL (70-99); POTASSIUM,K 3.2 mEq/L (3.5-5.1); SODIUM,NA 147.0 mEq/L (136-145)
[2024-10-31] MEDS: Potassium Chloride 20 MEQ Tab.ER PO ONE (16:16)
[2024-11-01 04:37] LABS: BASOPHILS ABSOLUTE AUTO 0.1 K/mm3 (0.0-0.2); BASOPHILS PERCENT AUTO 1.4 % (0.0-1.0); EOSINOPHILS ABSOLUTE AUTO 0.1 K/mm3 (0.0-0.4); EOSINOPHILS PERCENT AUTO 0.8 % (0.0-6.0); IMMATURE GRAN ABSOLUTE AUTO 0.03 K/mm3 (0.00-0.05); IMMATURE GRAN PERCENT AUTO 0.4 % (0.0-0.4); LYMPHOCYTES ABSOLUTE AUTO 2.8 K/mm3 (1.0-4.8); LYMPHOCYTES PERCENT AUTO 33.1 % (24.0-44.0); MEAN PLATELET VOLUME 9.3 fl (9.4-12.3); MONOCYTES ABSOLUTE AUTO 0.8 K/mm3 (0.0-0.8); MONOCYTES PERCENT AUTO 9.0 % (0.0-8.0); NEUTROPHILS ABSOLUTE AUTO 4.6 K/mm3 (1.8-7.7); NEUTROPHILS PERCENT AUTO 55.3 % (41.0-71.0); NRBC ABSOLUTE 0.00 (0.00-0.02); NRBC PERCENT 0.0 % (0.0-0.2); PLATELET COUNT,PLT 243 K/mm3 (150-400); RED BLOOD CELL COUNT 3.94 M/mm3 (4.10-5.30); WHITE BLOOD CELL COUNT,WBC 8.31 K/mm3 (3.9-11.3)
[2024-11-01 05:02] LABS: A/G RATIO 0.9 (1-2); ALANINE AMINOTRANSFERASE,ALT 46.0 U/L (14-59); ASPARTATE AMNIOTRANSFERASE,AST 38.0 U/L (15-37); BILIRUBIN TOTAL 0.5 mg/dL (0.2-1.0); BLOOD UREA NITROGEN,BUN 11.0 mg/dL (7-18); CARBON DIOXIDE,CO2 29.0 mEq/L (21-32); CHLORIDE,CL 111.0 mEq/L (98-107); CREATININE 1.0 mg/dL (0.55-1.02); EST CRCL DRUG DOSING (CG) 76.71 mL/min; ESTIMATED GFR 80.0 mL/min (>60); GLUCOSE RANDOM 113.0 mg/dL (70-99); POTASSIUM,K 3.9 mEq/L (3.5-5.1); PROTEIN TOTAL,TP 6.4 g/dl (6.4-8.2); SODIUM,NA 146.0 mEq/L (136-145)
== END 2024-11-01 11:56 | disposition home or self-care (01) | DRG 683 ==
LOC: JD.ED 07:54 → JD.MS 13:14
PROVIDERS: ADMIT Internal Medicine; ATTEND Internal Medicine
DX: N17.9 Acute kidney failure, unspecified (principal); E87.0 Hyperosmolality and hypernatremia; F41.9 Anxiety disorder, unspecified; F32.A Depression, unspecified; D64.9 Anemia, unspecified; F19.10 Other psychoactive substance abuse, uncomplicated; D72.829 Elevated white blood cell count, unspecified; E86.0 Dehydration; K21.00 Gastro-esophageal reflux disease with esophagitis, without bleeding; R73.9 Hyperglycemia, unspecified
CPT/HCPCS: 36415; 71270; 71270-26; 74177; 74177-26; 80048; 80053; 80306; 80307; 81001; 83036; 83605; 83690; 83735; 84484; 84703; 85025; 85610; 85730; 86140; 87040; 93005; 93010; 96361; 96365; 96367; 96375; 99284; 99285-25; A9270-GY; J1200; J1790; J1836; J2405; J2470; J2543; J3480; J7030; J7070; J7120; Q9967

== ENCOUNTER 2024-11-07 08:10 | Emergency (ER) | payer MEDICAID ==
[2024-11-07] MEDS ORDERED: Sodium Chloride 0.9% 10 ML Syringe FLUSH PRN (08:46)
[2024-11-07 09:06] LABS: BASOPHILS ABSOLUTE AUTO 0.1 K/mm3 (0.0-0.2); BASOPHILS PERCENT AUTO 0.5 % (0.0-1.0); EOSINOPHILS ABSOLUTE AUTO 0.2 K/mm3 (0.0-0.4); EOSINOPHILS PERCENT AUTO 1.1 % (0.0-6.0); IMMATURE GRAN ABSOLUTE AUTO 0.11 K/mm3 (0.00-0.05); IMMATURE GRAN PERCENT AUTO 0.5 % (0.0-0.4); LYMPHOCYTES ABSOLUTE AUTO 1.8 K/mm3 (1.0-4.8); LYMPHOCYTES PERCENT AUTO 8.9 % (24.0-44.0); MEAN PLATELET VOLUME 9.1 fl (9.4-12.3); MONOCYTES ABSOLUTE AUTO 1.8 K/mm3 (0.0-0.8); MONOCYTES PERCENT AUTO 8.6 % (0.0-8.0); NEUTROPHILS ABSOLUTE AUTO 16.5 K/mm3 (1.8-7.7); NEUTROPHILS PERCENT AUTO 80.4 % (41.0-71.0); NRBC ABSOLUTE 0.00 (0.00-0.02); NRBC PERCENT 0.0 % (0.0-0.2); PLATELET COUNT,PLT 387 K/mm3 (150-400); RED BLOOD CELL COUNT 5.21 M/mm3 (4.10-5.30); WHITE BLOOD CELL COUNT,WBC 20.52 K/mm3 (3.9-11.3)
[2024-11-07 09:39] LABS: A/G RATIO 1.1 (1-2); ALANINE AMINOTRANSFERASE,ALT 63 U/L (14-59); ASPARTATE AMNIOTRANSFERASE,AST 32 U/L (15-37); BILIRUBIN TOTAL 0.2 mg/dL (0.2-1.0); BLOOD UREA NITROGEN,BUN 11 mg/dL (7-18); CARBON DIOXIDE,CO2 20 mEq/L (21-32); CHLORIDE,CL 108 mEq/L (98-107); CREATININE 1.1 mg/dL (0.55-1.02); ESTIMATED GFR 71 mL/min (>60); GLUCOSE RANDOM 129 mg/dL (70-99); POTASSIUM,K 4.2 mEq/L (3.5-5.1); PROTEIN TOTAL,TP 7.7 g/dl (6.4-8.2); SODIUM,NA 141 mEq/L (136-145)
[2024-11-07] MEDS: droPERidol 2.5 MG/ML SDV IV ONE (09:39)
== END 2024-11-07 12:05 | disposition home or self-care (01) ==
LOC: JD.ED 08:10
DX: K52.9 Noninfective gastroenteritis and colitis, unspecified (principal); K21.9 Gastro-esophageal reflux disease without esophagitis; F17.200 Nicotine dependence, unspecified, uncomplicated; Z79.899 Other long term (current) drug therapy
CPT/HCPCS: 36415; 80053; 83690; 83735; 84703; 85025; 96361; 96374; 96375; 99284; J1790; J7030; J1171